=== PATIENT | female | born 1955 | race Caucasian/White ===

== ENCOUNTER 2017-03-18 09:53 | Outpatient (CLI) | payer MEDICAID ==
--- NOTE | 2017-03-19 14:26 | Mammography Report ---
DIGITAL SCREENING MAMMOGRAM: 03/18/2017 CLINICAL INDICATION: A 62-year-old nulliparous patient, for screening. COMPARISON: 02/2016, 01/2015, 12/2014, 03/2012, 02/2012, 03/2007. TECHNIQUE: Routine CC and MLO projections were obtained of the breasts. FINDINGS: Scattered fibroglandular tissue is present within the breasts. There are no dominant valentina s, suspicious microcalcifications, or secondary signs of malignancy. In comparison to the previous st udies, there are no significant changes. ASSESSMENT: NO MAMMOGRAPHIC EVIDENCE OF MALIGNANCY. NO SIGNIFICANT INTERVAL CHANGES. RECOMMENDATION: Screening mammography is recommended annually. BIRADS category 1 - negative. STANDARD QUALIFYING STATEMENTS 1. This examination was reviewed with the aid of Computed-Aided Detection (CAD). 2. A negative or benign imaging report should not delay biopsy if clinically suspicious findings are present. Consider surgical consultation if warranted. More than 5% of cancers are not identified by i maging. 3. Dense breasts may obscure an underlying neoplasm. JOB #: [id number] EXT JOB #:[id number]
== END 2017-03-18 09:54 | disposition home or self-care (01) ==
LOC: DI 09:53
PROVIDERS: ATTEND Nurse Practitioner Family
DX: Z12.31 Encounter for screening mammogram for malignant neoplasm of breast (principal)
CPT/HCPCS: 77067

== ENCOUNTER 2018-11-03 15:40 | Outpatient (CLI) | payer MEDICAID ==
--- NOTE | 2018-11-04 08:36 | Mammography Report ---
Reason: SCREENING MAMMO Procedure Date: 11/03/2018 Accession Number: [id number] / [id number] Procedure: [facility] - Screening Mammo w/Sbeastien CPT Code: FULL RESULT: EXAM: Screening Mammo w/Sebastien DATE: 11/03/2018 4:15 PM CLINICAL HISTORY: Screening encounter. History of nulliparity. TECHNIQUE: Bilateral CC and MLO views were obtained. COMPARISON: 03/18/2017 through 12/26/2014. FINDINGS: The breasts demonstrate scattered fibroglandular densities bilaterally. There are coarse typically benign calcifications. No suspicious masses, clustered microcalcifications, or regions of architectural distortion are identified. IMPRESSION: Benign findings RECOMMENDATION: Routine annual screening unless otherwise clinically indicated. BIRADS CATEGORY 2: Benign findings STANDARD QUALIFYING STATEMENTS: 1. This examination was not reviewed with the aid of Computer-Aided Detection (CAD). 2. A negative or benign imaging report should not preclude biopsy if clinically suspicious findings are present. 3. Dense breasts may obscure an underlying neoplasm. 4. This examination was reviewed with the aid of 3D breast imaging (tomosynthesis).
== END 2018-11-03 15:41 | disposition home or self-care (01) ==
LOC: DI 15:40
PROVIDERS: ATTEND Nurse Practitioner Family
DX: Z12.31 Encounter for screening mammogram for malignant neoplasm of breast (principal)
CPT/HCPCS: 77063; 77067

== ENCOUNTER 2020-08-22 08:42 | Outpatient (CLI) | payer MEDICAID, MEDICARE ==
[2020-08-22 14:57] LABS: BASOPHILS % (AUTO) 0.5 %; EOSINOPHILS # (AUTO) 0.1 10^3/uL (0.0-0.7); EOSINOPHILS % (AUTO) 2.8 %; HGB - HEMOGLOBIN 13.6 g/dL (12.0-16.0); LYMPHOCYTES # (AUTO) 1.1 10^3/uL (1.5-3.5); MEAN CORPUSCULAR HEMOGLOBIN 30.8 pg (27.0-31.0); MEAN CORPUSCULAR HGB CONC 32.6 g/dL (32.0-36.0); MEAN CORPUSCULAR VOLUME 94.3 fL (81.0-99.0); MEAN PLATELET VOLUME 10.8 fL (7.9-10.8); MONOCYTES # (AUTO) 0.3 10^3/uL (0.0-1.0); MONOCYTES % (AUTO) 7.6 %; NEUTROPHILS # (AUTO) 2.7 10^3/uL (1.5-6.6); NEUTROPHILS % (AUTO) 62.9 %; PLT - PLATELET COUNT 259 10^3/uL (130-450); RED BLOOD COUNT 4.42 10^6/uL (4.20-5.40); RED CELL DISTRIBUTION WIDTH 12.7 % (12.0-15.0); WHITE BLOOD COUNT 4.4 x10^3/uL (4.8-10.8)
[2020-08-22 15:40] LABS: ALBUMIN 4.2 g/dL (3.2-5.5); ALBUMIN/GLOBULIN RATIO 1.7 (1.0-2.2); ALKALINE PHOSPHATASE 41 IU/L (42-121); ALT ALANINE AMINOTRANSFERASE 15 IU/L (10-60); AST ASPARTATE AMINOTRANSFERASE 16 IU/L (10-42); BILIRUBIN,TOTAL 0.9 mg/dL (0.2-1.0); BUN - BLOOD UREA NITROGEN 17 mg/dL (6-20); CALCIUM 9.4 mg/dL (8.5-10.3); CARBON DIOXIDE - CO2 25 mmol/L (21-32); CHLORIDE 106 mmol/L (101-111); CHOLESTEROL 281 mg/dL; CREATININE 0.6 mg/dL (0.4-1.0); GLUCOSE 94 mg/dL (70-100); HDL CHOLESTEROL 71 mg/dL; LDL CHOLESTEROL,CALCULATED 190 mg/dL; LDL/HDL RATIO 2.7 (<4.4); SODIUM 138 mmol/L (135-145); TOTAL PROTEIN 6.7 g/dL (6.7-8.2); VLDL CHOLESTEROL 20 mg/dL
[2020-08-23 13:51] LABS: HEPATITIS C ANTIBODY NON-REACTIVE (NON-REACTIVE)
== END 2020-08-22 08:43 | disposition home or self-care (01) ==
LOC: LAB.S 08:42
PROVIDERS: ATTEND Registered Nurse
DX: R03.0 Elevated blood-pressure reading, without diagnosis of hypertension (principal); N95.9 Unspecified menopausal and perimenopausal disorder; Z11.59 Encounter for screening for other viral diseases
CPT/HCPCS: 36415; 80053; 80061; 83721; 84443; 85025; 86803

== ENCOUNTER 2020-10-07 11:31 | Outpatient (CLI) | payer MEDICARE ==
--- NOTE | 2020-10-07 11:01 | XRAY Report ---
PROCEDURE: Finger(s) RT INDICATIONS: ACQUIRED DEFORMITY OF R 4TH DIGIT TECHNIQUE: AP hand, 3 views of the right finger(s) acquired. COMPARISON: None FINDINGS: Bones: No fractures or dislocations. No suspicious bony lesions. Scattered subchondral sclerosis an d spurring. Chronic osseous fusion of the middle and proximal phalanges of the ring finger. Loose adriana dy versus chondrocalcinosis projects in the region of the distal radioulnar joint Additional chronic degenerative ossicle projects adjacent to the pisiform. Scattered marginal lucenci es at the interphalangeal joints are nonspecific. Subchondral lucency at the distal phalanx of the li ttle finger at the DIP joint Soft tissues: No suspicious soft tissue calcifications. 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 Diffuse degenerative changes as above. Nonspecific marginal lucencies at the interphalangeal joints, possibly degenerative cysts versus eros ions. Reviewed by: Gilbert Baugh MD on 10/07/2020 10:59 AM PST Approved by: Gilbert Baugh MD on 10/07/2020 10:59 AM PST Station ID: [id number]
== END 2020-10-07 23:59 | disposition home or self-care (01) ==
LOC: DI.N 11:31
PROVIDERS: ATTEND Orthopaedic Surgery
DX: M20.001 Unspecified deformity of right finger(s) (principal); M19.041 Primary osteoarthritis, right hand

== ENCOUNTER 2020-11-26 15:19 | Outpatient (CLI) | payer MEDICARE ==
--- NOTE | 2020-11-27 07:50 | Mammography Report ---
BILATERAL DIGITAL SCREENING MAMMOGRAM 3D/2D: 11/26/2020 CLINICAL: Routine screening. Comparison is made to exams dated: 11/03/2018 mammogram, 03/18/2017 mammogram, and 02/19/2016 mammogram - [facility]. The tissue of both breasts is predominantly fatty. There is a stable benign focal asymmetry in the right breast. No significant masses, calcifications, or other findings are seen in either breast. There has been no significant interval change. IMPRESSION: BENIGN There is no mammographic evidence of malignancy. A 1 year screening mammogram is recommended. This exam was interpreted at Station ID: [id number]. NOTE: For mammograms, a report in lay terms will be sent to the patient. Approximately 15% of breast malignancies will not be visualized mammographically. In the management of a palpable breast mass, a negative mammogram must not discourage biopsy of a clinically suspicious lesion. Electronically Signed By: Binh Darby acr/penrad:11/26/2020 16:20:50 ACR BI-RADS Category 2: Benign Finding(s) 3342F PARENCHYMAL PATTERN: (F) - The breast(s) demonstrate(s) diffuse fatty replacement. BI-RADS CATEGORY: (2) - 2 RECOMMENDATION: (ANNUAL) - Recommend routine annual screening mammography. [id number] 1 year screening LATERALITY: (B)
== END 2020-11-26 15:20 | disposition home or self-care (01) ==
LOC: DI.S 15:19
PROVIDERS: ATTEND Registered Nurse
DX: Z12.31 Encounter for screening mammogram for malignant neoplasm of breast (principal)

== ENCOUNTER 2020-12-05 08:42 | Day surgery (SDC) | payer MEDICARE ==
[2020-12-05] MEDS ORDERED: LACTATED RINGERS 1,000 ML IV ONE ×2 (08:46→10:03)
--- NOTE | 2020-12-05 09:34 | ANESTHESIA ---
Pre-Anesthesia VS, & Labs - Diagnosis screening - Procedure colonoscpy Vital Signs: Temp Pulse Resp BP Pulse Ox 36.4 C L 76 16 139/93 H 96 12/05/20 08:52 12/05/20 08:52 12/05/20 08:52 12/05/20 08:52 12/05/20 08:52 Height: 5 ft 3 in Weight (kg): 71 kg Body Mass Index: 27.7 BMI Classification: Overweight - NPO >8 hours - Is Patient ?: No Home Medications and Allergies Home Medications: Ambulatory Orders metroNIDAZOLE 0.75% GEL [Flagyl Gel] TOP 12/04/20 Estrogen,Con/M-Progest Acet [Premphase 0.625-5 mg Tablet] 1 each PO DAILY 10/26/14 metroNIDAZOLE 0.75% GEL [Flagyl Gel] TOP 12/04/20 Allergies/Adverse Reactions: Allergies Allergy/AdvReac Type Severity Reaction Status Date / Time No Known Drug Allergies Allergy Verified 12/04/20 11:56 Anes History & Medical History - Medical History Cardiovascular: reports: Arrhythmia Pulmonary: reports: None Gastrointestinal: reports: None Urinary: reports: None Musculoskeletal: reports: Osteoarthritis Endocrine/Autoimmune: reports: None Skin: reports: Rosacea Smoking Status: Never smoker - Surgical History General: reports: Appendectomy, Colonoscopy Gynecologic: reports: Hysterectomy Orthopedic: reports: Carpal Tunnel surgery Exam Dental: WNL Mouth Openin Fingerbreadth Mallampati classification: II Thyromental Distance: 4-6 cm Respiratory: Lungs clear Plan Anesthesia Type: Total IV Consent for Procedure(s) Verified and Reviewed: Yes Code Status: Attempt Resuscitation ASA classification: 2-Mild systemic disease Is this case an emergency?: No
[2020-12-05] MEDS ORDERED: LIDOCAINE-MPF 2% 5 ML VIAL ONE (09:43)
[2020-12-05] MEDS ORDERED: PROPOFOL 200 MG/20 ML VIAL IVP ONE (09:43)
[2020-12-05] MEDS ORDERED: ATROPINE 0.4 MG/ML VIAL IVP ONE (10:01)
[2020-12-05 10:20] VITALS: BP 121/78
--- NOTE | 2020-12-05 10:51 | ANESTHESIA POST OP EVALUATION ---
Anesthesia Post Eval - Post Anesthesia Eval Vitals: Last Vital Signs Temp 36.7 C 12/05/20 10:03 Pulse 77 12/05/20 10:19 Resp 18 12/05/20 10:19 BP 121/78 12/05/20 10:19 Pulse Ox 100 12/05/20 10:19 CV Function Including HR & BP: positive: Stable Pain Control: positive: Satisfactory Nausea & Vomiting: positive: Negative Mental Status: positive: Baseline Respiratory Status: Airway Patent Hydration Status: Satisfactory Anesthesia Complications: positive: None
== END 2020-12-05 08:43 | disposition home or self-care (01) ==
LOC: SDS 08:42
PROVIDERS: ATTEND Surgery
PROC: 0DBN8ZZ Excision of Sigmoid Colon, Via Natural or Artificial Opening Endoscopic (ICD-10-PCS; principal; 2020-12-05 09:45)
DX: Z12.11 Encounter for screening for malignant neoplasm of colon (principal); K63.5 Polyp of colon; K64.8 Other hemorrhoids; Q43.8 Other specified congenital malformations of intestine; E66.3 Overweight; Z68.27 Body mass index [BMI] 27.0-27.9, adult; Z87.891 Personal history of nicotine dependence
CPT/HCPCS: 45380; J7120

== ENCOUNTER 2021-02-14 11:50 | Outpatient (CLI) | payer MEDICARE ==
--- NOTE | 2021-02-14 13:40 | XRAY Report ---
PROCEDURE: Shoulder 3 View LT INDICATIONS: SHOULDER PX LT TECHNIQUE: 3 views of the shoulder were acquired. COMPARISON: None. FINDINGS: No acute fracture. Severe glenohumeral osteoarthritis with [id number] appearance, and bulky osteoph yte formation. Mild AC joint degeneration. IMPRESSION: Severe right shoulder osteoarthritis Reviewed by: Gilbert Baugh MD on 02/14/2021 1:39 PM PDT Approved by: Gilbert Baugh MD on 02/14/2021 1:39 PM PDT Station ID: [id number]
== END 2021-02-14 11:51 | disposition home or self-care (01) ==
LOC: DI.S 11:50
PROVIDERS: ATTEND Registered Nurse
DX: M25.512 Pain in left shoulder (principal); M19.012 Primary osteoarthritis, left shoulder

== ENCOUNTER 2021-03-10 09:44 | Outpatient (CLI) | payer MEDICARE ==
[2021-03-10] MEDS ORDERED: BUFFERED LIDOCAINE 10 ML SYRINGE ONE (09:49)
[2021-03-10] MEDS ORDERED: TRIAMCINOLONE 40 MG/ML VIAL ONE (09:50)
[2021-03-10] MEDS ORDERED: IOTHALAMATE MEGLUMINE 50 ML VIAL ONE (09:50)
[2021-03-10] MEDS ORDERED: ROPIVACAINE 0.5% PF 20 ML AMPULE ONE (09:56)
[2021-03-10] MEDS ORDERED: IOTHALAMATE MEGLUMINE 50 ML VIAL IVP ONE (11:28)
[2021-03-10] MEDS ORDERED: ROPIVACAINE 0.5% PF 20 ML AMPULE EP ONE (11:29)
[2021-03-10] MEDS ORDERED: BUFFERED LIDOCAINE 10 ML SYRINGE IU ONE (11:29)
[2021-03-10] MEDS ORDERED: TRIAMCINOLONE 40 MG/ML VIAL IM ONE (11:35)
--- NOTE | 2021-03-10 16:42 | XRAY Report ---
PROCEDURE: Inj/Aspiration Major Joint INDICATIONS: LEFT GLENOHUMERAL JOINT OSTEOARTHRITIS CONTRAST: Conray 2 mL. FLUORO TIME: FLUORO TIME: 0.1min and NUMBER IMAGES: 2 TECHNIQUE: The indications, alternatives, benefits, risks, and complications of the procedure were explained to the patient. Written informed consent was obtained and placed in the chart. The patient was placed in an appropriate position on the fluoroscopy table, and a site was chosen for percutaneous access un jarrod fluoroscopic guidance. Local anesthetic was administered using a 1% lidocaine solution. A hypod ermic or spinal needle was then used to access the symptomatic joint. Intra-articular location of th e needle tip was confirmed by injecting a small amount of contrast, followed by steroid administratio n. The needle was then withdrawn, and a bandage applied to the puncture site. FINDINGS: Joint injected: Left glenohumeral Medications injected: 1 mL of 40 mg/mL and 4 mL 0.5% Ropivacaine mixture. Complications: None. IMPRESSION: Successful fluoroscopically guided administration of steroid and anaesthetic solution into the joint joint. Reviewed by: Dell Mccrary MD on 03/10/2021 4:40 PM PDT Approved by: Dell Mccrary MD on 03/10/2021 4:40 PM PDT Station ID: [id number]
== END 2021-03-10 09:45 | disposition home or self-care (01) ==
LOC: DI 09:44
PROVIDERS: ATTEND Orthopaedic Surgery
DX: M19.012 Primary osteoarthritis, left shoulder (principal)
CPT/HCPCS: 20610; 77002; Q9961

== ENCOUNTER 2021-06-04 15:13 | Outpatient (CLI) | payer MEDICARE ==
--- NOTE | 2021-06-04 17:30 | CT Report ---
PROCEDURE: UPPER EXTREMITY WO - LT INDICATIONS: LEFT GLENOHUMERAL JOINT OSTEOARTHRITIS TECHNIQUE: Noncontrast 1 mm axial sections acquired of the left shoulder, with oblique coronal and oblique sagit peter reformats. COMPARISON: Left shoulder radiographs 02/14/2021. FINDINGS: Image quality: Excellent. Bones: No acute osseous fracture or dislocation. Severe degenerative changes are seen at the glenohu meral joint with full-thickness joint space narrowing, subchondral sclerosis, subchondral cystic moncada ges, marginal osteophyte formation, and remodeling of the articular surfaces. Findings result in appr oximately 14 degrees of glenoid retroversion relative to the midplane of the scapula at the mid gleno id level. There is significant thinning of the posterior glenoid bone stock. Mild degenerative change s are seen in the acromioclavicular joint. The Included ribs are intact. Soft tissues: The rotator cuff musculature is normal in bulk. The articular cartilages, ligaments, t endons, and labrum are not well evaluated with CT. There is a large glenohumeral effusion with multip le calcified intra-articular loose bodies, the largest of which measures up to 6 mm in the superior s ubscapularis recess. IMPRESSION: 1. Severe glenohumeral osteoarthrosis with loss of posterior glenoid bone stock and remodeling of th e articular surfaces resulting in 14 degrees of glenoid retroversion relative to the midplane of the scapula at the mid glenoid level. 2. Large glenohumeral effusion with multiple small calcified intra-articular loose bodies. 3. Mild acromioclavicular joint osteoarthrosis. Reviewed by: Serjio Nicole MD on 06/04/2021 5:28 PM PDT Approved by: Serjio Nicole MD on 06/04/2021 5:28 PM PDT Station ID: [id number]
== END 2021-06-04 15:14 | disposition home or self-care (01) ==
LOC: DI 15:13
PROVIDERS: ATTEND Orthopaedic Surgery
DX: M19.012 Primary osteoarthritis, left shoulder (principal); M25.412 Effusion, left shoulder

== ENCOUNTER 2021-08-01 08:45 | Outpatient (CLI) | payer MEDICARE ==
[2021-08-01 15:15] LABS: BASOPHILS % (AUTO) 0.4 %; EOSINOPHILS # (AUTO) 0.2 10^3/uL (0.0-0.7); HCT - HEMATOCRIT 42.2 % (37.0-47.0); HGB - HEMOGLOBIN 13.9 g/dL (12.0-16.0); LYMPHOCYTES # (AUTO) 1.1 10^3/uL (1.5-3.5); LYMPHOCYTES % (AUTO) 21.2 %; MEAN CORPUSCULAR HEMOGLOBIN 31.8 pg (27.0-31.0); MEAN CORPUSCULAR HGB CONC 32.9 g/dL (32.0-36.0); MEAN CORPUSCULAR VOLUME 96.6 fL (81.0-99.0); MEAN PLATELET VOLUME 10.7 fL (7.9-10.8); MONOCYTES # (AUTO) 0.4 10^3/uL (0.0-1.0); MONOCYTES % (AUTO) 8.5 %; NEUTROPHILS # (AUTO) 3.3 10^3/uL (1.5-6.6); NEUTROPHILS % (AUTO) 66.5 %; PLT - PLATELET COUNT 242 10^3/uL (130-450); RED BLOOD COUNT 4.37 10^6/uL (4.20-5.40); RED CELL DISTRIBUTION WIDTH 12.8 % (12.0-15.0)
[2021-08-01 15:50] LABS: ALBUMIN 4.2 g/dL (3.2-5.5); ALBUMIN/GLOBULIN RATIO 1.7 (1.0-2.2); ALKALINE PHOSPHATASE 45 IU/L (42-121); ALT ALANINE AMINOTRANSFERASE 16 IU/L (10-60); AST ASPARTATE AMINOTRANSFERASE 14 IU/L (10-42); BILIRUBIN,TOTAL 0.7 mg/dL (0.2-1.0); BUN - BLOOD UREA NITROGEN 16 mg/dL (6-20); CALCIUM 9.2 mg/dL (8.5-10.3); CARBON DIOXIDE - CO2 25 mmol/L (21-32); CHLORIDE 105 mmol/L (101-111); CHOL/HDL RATIO 3.6 (<4.4); CHOLESTEROL 280 mg/dL; CREATININE 0.5 mg/dL (0.4-1.0); GFR - MDRD 123 (>89); GLUCOSE 97 mg/dL (70-100); HDL CHOLESTEROL 77 mg/dL; LDL CHOLESTEROL,CALCULATED 180 mg/dL; LDL/HDL RATIO 2.3 (<4.4); POTASSIUM 4.1 mmol/L (3.5-5.0); SODIUM 137 mmol/L (135-145); TOTAL PROTEIN 6.7 g/dL (6.7-8.2); TRIGLYCERIDES 117 mg/dL; VLDL CHOLESTEROL 23 mg/dL
[2021-08-01 15:57] LABS: THYROID STIMULATING HORMONE 1.43 uIU/mL (0.34-5.60)
[2021-08-01 20:24] LABS: ESTIMATED AVERAGE GLUCOSE 94 mg/dL (70-100); HEMOGLOBIN A1c% 4.9 % (4.27-6.07)
== END 2021-08-01 08:46 | disposition home or self-care (01) ==
LOC: LAB.S 08:45
PROVIDERS: ATTEND Registered Nurse
DX: Z01.812 Encounter for preprocedural laboratory examination (principal); R03.0 Elevated blood-pressure reading, without diagnosis of hypertension; N95.9 Unspecified menopausal and perimenopausal disorder
CPT/HCPCS: 36415; 80053; 80061; 83036; 83721; 84443; 85025

== ENCOUNTER 2021-08-20 07:24 | Day surgery (SDC) | payer MEDICARE ==
[~2021-08-20 07:24] MED LIST: ACETAMINOPHEN 500 MG TABLET PO ONE; CEFAZOLIN SODIUM IN 0.9 % NACL 2 GM/100 ML BAG IV ONE; CELECOXIB 100 MG CAPSULE PO ONE; DEXAMETHASONE 10 MG/ML VIAL ONE; THROMBIN (BOVINE) 5,000 UNIT VIAL TOP ONE; VANCOMYCIN 1 GM VIAL ONE
[2021-08-20] MEDS ORDERED: oxyCODONE 5 MG TABLET PO PRN (07:33)
[2021-08-20] MEDS ORDERED: KETOROLAC 15 MG/ML VIAL IVP STA (07:33)
[2021-08-20] MEDS ORDERED: LACTATED RINGERS 1,000 ML IV ONE ×2 (07:34→12:57)
[2021-08-20] MEDS ORDERED: ROPIVACAINE 0.5% PF 20 ML AMPULE ONE ×2 (07:44→07:45)
[2021-08-20] MEDS ORDERED: ROCURONIUM 50 MG/5 ML VIAL ONE ×2 (07:44→10:21)
[2021-08-20] MEDS ORDERED: ONDANSETRON 4 MG/2 ML VIAL ONE (07:44)
[2021-08-20] MEDS ORDERED: PROPOFOL 200 MG/20 ML VIAL IVP ONE (07:44)
[2021-08-20] MEDS ORDERED: LIDOCAINE-MPF 2% 5 ML VIAL ONE (07:44)
[2021-08-20] MEDS ORDERED: DEXAMETHASONE 4 MG/ML VIAL ONE ×2 (07:44→07:49)
[2021-08-20] MEDS ORDERED: MIDAZOLAM 2 MG/2 ML VIAL ONE (07:46)
[2021-08-20] MEDS ORDERED: fentaNYL 100 MCG/2 ML VIAL ONE (07:46)
[2021-08-20] MEDS ORDERED: ethyl alcohoL 62% SWAB AMPULE NAS ONE (07:50)
--- NOTE | 2021-08-20 08:13 | ANESTHESIA ---
Pre-Anesthesia VS, & Labs - Diagnosis left shoulder osteoarthritis - Procedure left total shoulder arthroplasty Vital Signs: Temp Pulse Resp BP Pulse Ox 36.2 C L 67 16 133/88 H 96 08/20/21 07:35 08/20/21 07:35 08/20/21 07:35 08/20/21 07:35 08/20/21 07:35 Height: 5 ft 2 in Weight (kg): 73 kg Body Mass Index: 29.4 BMI Classification: Overweight - NPO >8 hours - Is Patient ?: No - Lab Results Current Lab Results: Laboratory Tests 08/20/21 07:56: POC Whole Bld Glucose 101 H Home Medications and Allergies Active Medications Oxycodone HCl (Oxycodone 5 Mg Tablet) 5 mg PO Q4HR PRN PRN Reason: PAIN Estrogen,Con/M-Progest Acet [Premphase 0.625-5 mg Tablet] 1 each PO DAILY 10/26/14 metroNIDAZOLE 0.75% GEL [Flagyl Gel] 1 mg TOP DAILY 12/04/20 Allergies/Adverse Reactions: Allergies Allergy/AdvReac Type Severity Reaction Status Date / Time No Known Drug Allergies Allergy Verified 08/20/21 07:34 Anes History & Medical History - Anesthetic History Anesthesia Complications: reports: No previous complications - Medical History Cardiovascular: reports: Other Pulmonary: reports: None Gastrointestinal: reports: None Urinary: reports: Frequency Musculoskeletal: reports: None, Osteoarthritis Endocrine/Autoimmune: reports: None Skin: reports: Rosacea Smoking Status: Never smoker - Surgical History General: reports: Appendectomy, Colonoscopy Gynecologic: reports: Hysterectomy, Oophrectomy Orthopedic: reports: Carpal Tunnel surgery Dermatologic: reports: Skin cancer surgery Exam General: Alert, Oriented x3 Dental: Poor dentition Mouth Opening: Greater than 4 Fingerbreadths Neck Mobility: Normal Mallampati classification: II Thyromental Distance: greater than 6 cm Respiratory: Lungs clear Cardiovascular: Regular rate, Normal S1, Normal S2 Plan Anesthesia Type: General, Interscalene Block Consent for Procedure(s) Verified and Reviewed: Yes Code Status: Attempt Resuscitation ASA classification: 2-Mild systemic disease Is this case an emergency?: Yes
[2021-08-20] MEDS ORDERED: NALOXONE 0.4 MG/ML VIAL IVP PRN (08:17)
[2021-08-20] MEDS ORDERED: METOCLOPRAMIDE 10 MG/2 ML VIAL IVP PRN (08:17)
[2021-08-20] MEDS ORDERED: ATROPINE ABBOJECT 1 MG/10 ML SYRINGE IVP PRN (08:17)
[2021-08-20] MEDS ORDERED: ePHEDrine 50 MG/ML VIAL IVP PRN (08:17)
[2021-08-20] MEDS ORDERED: HYDROmorphone 0.5 MG/0.5 ML SYRINGE IVP PRN (08:17)
[2021-08-20] MEDS ORDERED: fentaNYL 100 MCG/2 ML VIAL IVP PRN (08:17)
[2021-08-20] MEDS ORDERED: ONDANSETRON 4 MG/2 ML VIAL IVP PRN (08:17)
[2021-08-20] MEDS ORDERED: MORPHINE 2 MG/ML CARPUJECT IVP PRN (08:17)
[2021-08-20] MEDS ORDERED: PHENYLEPHRINE 10 MG/ML VIAL ONE (08:57)
[2021-08-20] MEDS ORDERED: TRANEXAMIC ACID 1,000 MG/10 ML VIAL ONE ×2 (08:57→12:34)
[2021-08-20] MEDS ORDERED: LACTATED RINGERS 1,000 ML IV SCH (09:00)
[2021-08-20] MEDS ORDERED: HYDROGEN PEROXIDE 3% 473 ML BOTTLE TOP ONE (09:15)
[2021-08-20] MEDS ORDERED: ePHEDrine 50 MG/ML VIAL IVP ONE (09:37)
[2021-08-20] MEDS ORDERED: VANCOMYCIN 1 GM VIAL MC ONE (09:40)
[2021-08-20] MEDS ORDERED: THROMBIN (BOVINE) 5,000 UNIT VIAL TOP ONE (09:40)
[2021-08-20] MEDS ORDERED: SUGAMMADEX 200 MG/2 ML VIAL IVP ONE (12:24)
[2021-08-20] MEDS ORDERED: ceFAZolin 1 GM VIAL ONE (12:30)
--- NOTE | 2021-08-20 12:34 | OPERATIVE REPORT ---
Operative Report - General Procedure Date: 08/20/21 Planned Procedure: Left total shoulder arthroplasty Pre-Op Diagnosis: Osteoarthritis glenohumeral joint left shoulder Procedure Performed: Left total shoulder arthroplasty using the [employer] total shoulder: Extra small fin lock glenoid component, pegged with cement; 40 x 15 mm cobalt chrome eccentric humeral head, 11 mm humeral stem with 10 small primary proximal body, noncemented Post Op Diagnosis: Same as preop diagnosis - Procedure Note Primary Surgeon: Kobi Neville MD Secondary Surgeon: Trevin TAYLOR Anesthesia Provider: Raiza Mckenzie CRNA Anesthesia Technique: General ET tube, Regional block Estimated Blood Loss (mL): 150 Indications: This is a 66-year-old with chronic and progressive pain with left shoulder making it hard to do lifting, activities of daily living and activities she enjoys. She is tried nonoperative treatment without success as has been documented in her history and physical. Her x-rays and CT scan were obtained prior to surgery and showed complete loss of glenohumeral joint space, posterior glenoid wear, osteophytes and sclerosis. Her strength was relatively good, rotator cuff strength seemed to be good preoperatively. She did have decreased motion but good external rotation and relatively good overall motion despite her advanced osteoarthritis Findings: The rotator cuff was completely intact. The glenoid and humeral head were very abnormal with complete loss of articular cartilage, osteophytes about the glenoid, osteophytes about the humeral neck especially inferiorly. Complications: None - Other Other Information/Narrative: The patient was brought to the operating room. She had been given a shoulder block, then general endotracheal anesthesia. She was positioned supine on the operating room table in a beachchair positioner. The [employer] arthrex arm holderWas applied to the operating room table. The patient was placed in a s emisitting position with the head of bed elevated to about 30 degrees. Her head was secured with a padded facemask in neutral neck alignment. The left shoulder and upper extremity were prepped and draped in a sterile manner in the usual fashion. A timeout procedure was performed by the entire operating room team and all were in agreement. A triple prep had been performed prior to draping consisting of Betadine, 3% hydrogen peroxide and chlorhexidine. The axilla was occluded from the operatingField. A standard deltopectoral incision was made. Gelpi's were inserted. The cephalic vein was identified and retracted laterally with the deltoid as the deltopectoral interval was developed by blunt incision.The clavipectoral fascia was incised. Care was taken to protect the muscular cutaneous nerve with retraction of the conjoined muscles. The biceps tendon was identified and exposed through its sheath over the proximal humerus. The upper 25% of the pectoralis major was released. The arm was externally rotated. The rotator interval was opened and a subperiosteal peel of the subscapularis and capsule was performed. The inferior capsule was released along the neck with care taken to protect the axillary nerve. The inferior humeral osteophytes were carefully removed with rongeur. The head was gently dislocated anteriorly. Retractors were placed superiorly to sublux the head more anteriorly. A deltoid muscle retractor had been inserted. A blunt Hohmann was inserted medially.Before the subscapularis tendon had been released, Ethibond #1 suture was placed as tag sutures. The T-handle starter awl was then inserted posterior lateral humeral head, posterior to biceps. The intramedullary humeral neck cutting guide was inserted and adjusted to protect the rotator cuff. The cutting guide was secured with half pins And aligned with 30 degrees of retroversion. An oscillating saw was used to do the osteotomy of the humeral head. Head sizing was performed and measured 38 mm. The surface of the osteotomy was covered with a metal protective cap. Next the glenoid was exposed placing a posterior humeral tractor to sublux the head posteriorly and inferiorly, blunt anterior glenoid retractor and a spike superior retractor. The glenoid had osteophytes which were removed. Anterior capsular release was performed. The biceps and labrum had been circumferentially removed. The center of the glenoid was identified. The extra small glenoid seem to give the best coverage. The cannulated glenoid guide was then utilized to put a guidepin, 2.0 mm to the center of the glenoid with 5 degrees of anterior angulation to compensate for the posterior wear. The extra small glenoid reamer was used to ream the glenoid. The peg drill guide was then inserted through a central drill hole. The peripheral peg holes were then drilled and peg seated. After the peripheral holes had been drilled, a peg glenoid punch was utilized and fit well. The holes were irrigated,. Gelfoam and thrombin were placed in the peg holes. A small amount of cement injected into the peripheral peg holes and gently impacted. The extra small all polyethylene glenoid implant was then impacted. This seated well and was stable to rocking motion. Next the humerus was exposed again. The humeral canal was prepared with central reamer to a #11. This gave a snug fit and was stable. She had relatively good bone both the glenoid and humerus, meaning that there was little osteoporosis encountered. Final broaching was performed 30 degrees of retroversion. Trial humeral heads were applied and a 40 seemed to give the best fit with an eccentric head. The shoulder was reduced and was stable with full internal rotation to chest and opposite shoulder, forward flexion to 140 degrees and at least 30 degrees of external rotation. There was a positive shuck test with spring back of the humeral head; shoulder seems stable. The eccentric head position was marked at the osteotomy. A fiber tack suture was inserted into the lesser tuberosity with 4 suture strands. The implant was assembled and impacted with sutures through the holes of the proximal prosthesis. This was fully seated in 30 degrees of retroversion, leaving it slightly proud. The humeral head was inserted, impacted and the unit was fully seated to the osteotomy site. The shoulder joint was stable to motion and to shuck test having a least 50% displacement posteriorly with a good spring back. The subscapularis was repaired with the suture anchor sutures, body sutures consisting of Ethibond and the previously t agged sutures that were Ethibond as well. A secure repair of the subscapularis and rotator interval was achieved. The joint was thoroughly irrigated with sterile dilute Betadine solution, a gram of vancomycin powder inserted, deltopectoral interval closed with 2 oh strata fix, subcutaneous tissue closed with 2 oh strata fix and the skin was closed with a 3-0 Monocryl subcuticular suture, Dermabond and then a silver impregnated dressing once the glue had dried to the skin incision.A sling was applied to the left upper extremity. She tolerated the procedure well. A physician patient care nursing assistant was utilized, medically necessary to help with prepping, draping, exposure and protection of vital structures, closure and dressing.
--- NOTE | 2021-08-20 14:37 | ANESTHESIA POST OP EVALUATION ---
Anesthesia Post Eval - Post Anesthesia Eval Vitals: Last Vital Signs Temp 36.6 C 08/20/21 13:50 Pulse 86 08/20/21 13:50 Resp 18 08/20/21 13:50 BP 110/76 08/20/21 13:50 Pulse Ox 93 08/20/21 13:50 CV Function Including HR & BP: Stable Pain Control: Satisfactory Nausea & Vomiting: Negative Mental Status: Baseline Respiratory Status: Airway Patent Hydration Status: Satisfactory Anesthesia Complications: None
[2021-08-20 14:44] VITALS: BP 127/92
--- NOTE | 2021-08-20 15:21 | XRAY Report ---
PROCEDURE: Shoulder 1 View LT INDICATIONS: postop TECHNIQUE: 1 views of the shoulder were acquired. COMPARISON: 02/14/2021. FINDINGS: Bones: Patient is status post left shoulder arthroplasty with anatomic left shoulder alignment. No fr acture or dislocation. No suspicious bony lesions. Visualized ribs appear intact. Soft tissues: Expected post surgical changes are seen in left shoulder soft tissue. No suspicious so ft tissue calcifications. IMPRESSION: Postop changes from left shoulder arthroplasty with anatomic shoulder alignment. Reviewed by: Yannick Marques MD on 08/20/2021 3:20 PM PST Approved by: Yannick Marques MD on 08/20/2021 3:20 PM PST Station ID: [id number]
== END 2021-08-20 07:25 | disposition home or self-care (01) ==
LOC: SDS 07:24
PROVIDERS: ATTEND Orthopaedic Surgery
DX: M19.012 Primary osteoarthritis, left shoulder (principal); Z87.891 Personal history of nicotine dependence
CPT/HCPCS: 23472; 73020; A9270; C1713; J0690; J3370; J7120

== ENCOUNTER 2021-10-13 11:46 | Outpatient (CLI) | payer MEDICARE ==
--- NOTE | 2021-10-13 13:34 | XRAY Report ---
PROCEDURE: Shoulder 3 View LT INDICATIONS: POST LEFT TOTAL SHOULDER ARTHROPLASTY TECHNIQUE: 4 views of the shoulder were acquired. COMPARISON: 08/20/2021 FINDINGS: Bones: Left shoulder arthroplasty components present. There is superior subluxation of the humeral h ead component respect to the [place] glenoid fossa. There is remodeling of the undersurface of the acr omion. No unexpected fractures. No suspicious bony lesions. Soft tissues: No suspicious soft tissue calcifications. IMPRESSION: 1. Superior subluxation of the humeral head out of the [place] glenoid fossa. Please correlate with lo cation of the radiopaque acetabular cup. 2. Stable position of the humeral prosthesis. Reviewed by: Elli Anderson MD on 10/13/2021 1:33 PM PST Approved by: Elli Anderson MD on 10/13/2021 1:33 PM PST Station ID: [id number]
== END 2021-10-13 11:47 | disposition home or self-care (01) ==
LOC: DI.WOS 11:46
PROVIDERS: ATTEND Orthopaedic Surgery
DX: T84.028A Dislocation of other internal joint prosthesis, initial encounter (principal)

== ENCOUNTER 2022-02-12 08:00 | Outpatient (CLI) | payer MEDICARE ==
--- NOTE | 2022-02-12 16:26 | XRAY Report ---
PROCEDURE: Shoulder 2 View LT INDICATIONS: SHOULDER FX TECHNIQUE: 4 views of the shoulder were acquired. COMPARISON: 08/20/2021, 10/13/2021 FINDINGS: Bones: Patient is status post left shoulder arthroplasty. Shoulder alignment is anatomic. No acute f racture or dislocation. No gross hardware loosening or failure. No suspicious bony lesions. Visualiz ed ribs appear intact. Soft tissues: No suspicious soft tissue calcifications. IMPRESSION: Prior left shoulder arthroplasty. No acute fracture or dislocation. No gross hardware co mplication. Shoulder alignment is stable. Reviewed by: Yannick Marques MD on 02/12/2022 4:24 PM PDT Approved by: Yannick Marques MD on 02/12/2022 4:24 PM PDT Station ID: [id number]
== END 2022-02-12 23:59 | disposition home or self-care (01) ==
LOC: DI.WOS 08:00
PROVIDERS: ATTEND Orthopaedic Surgery
DX: Z09 Encounter for follow-up examination after completed treatment for conditions other than malignant neoplasm (principal); Z96.612 Presence of left artificial shoulder joint

== ENCOUNTER 2022-08-20 12:57 | Outpatient (CLI) | payer MEDICARE ==
--- NOTE | 2022-08-20 20:20 | XRAY Report ---
PROCEDURE: Shoulder 3 View LT INDICATIONS: LEFT TOTAL SHOULDER TECHNIQUE: 3 views of the shoulder were acquired. COMPARISON: 02/12/2022, 10/13/2021, 08/20/2021. FINDINGS: Postsurgical changes of left total shoulder arthroplasty. Shoulder alignment is unchanged from prior study, again with superior subluxation of the humeral component relative to the glenoid. This has bee n present on 02/12/2022 exam and 10/13/2021 exam. IMPRESSION: Left total shoulder arthroplasty with unchanged superior subluxation of the humeral prost hetic relative to the glenoid. Reviewed by: Dell Mccrary MD on 08/20/2022 8:19 PM PST Approved by: Dell Mccrary MD on 08/20/2022 8:19 PM PST Station ID: [id number]
== END 2022-08-20 12:58 | disposition home or self-care (01) ==
LOC: DI.WOS 12:57
PROVIDERS: ATTEND Orthopaedic Surgery
DX: T84.028D Dislocation of other internal joint prosthesis, subsequent encounter (principal); Z96.612 Presence of left artificial shoulder joint

== ENCOUNTER 2023-05-12 08:00 | Outpatient (CLI) | payer MEDICARE ==
[2023-05-12 14:40] LABS: BASOPHILS % (AUTO) 0.8 %; EOSINOPHILS # (AUTO) 0.2 10^3/uL (0.0-0.7); EOSINOPHILS % (AUTO) 3.1 %; HCT - HEMATOCRIT 40.5 % (37.0-47.0); HGB - HEMOGLOBIN 13.2 g/dL (12.0-16.0); LYMPHOCYTES # (AUTO) 1.4 10^3/uL (1.5-3.5); LYMPHOCYTES % (AUTO) 26.2 %; MEAN CORPUSCULAR HEMOGLOBIN 31.4 pg (27.0-31.0); MEAN CORPUSCULAR HGB CONC 32.6 g/dL (32.0-36.0); MEAN CORPUSCULAR VOLUME 96.2 fL (81.0-99.0); MEAN PLATELET VOLUME 10.4 fL (7.9-10.8); MONOCYTES # (AUTO) 0.4 10^3/uL (0.0-1.0); MONOCYTES % (AUTO) 7.9 %; NEUTROPHILS # (AUTO) 3.2 10^3/uL (1.5-6.6); NEUTROPHILS % (AUTO) 61.8 %; PLT - PLATELET COUNT 237 10^3/uL (130-450); RED BLOOD COUNT 4.21 10^6/uL (4.20-5.40); RED CELL DISTRIBUTION WIDTH 13.5 % (12.0-15.0); WHITE BLOOD COUNT 5.2 x10^3/uL (4.8-10.8)
[2023-05-12 15:51] LABS: ALBUMIN 4.1 g/dL (3.2-5.5); ALBUMIN/GLOBULIN RATIO 1.8 (1.0-2.2); ALKALINE PHOSPHATASE 46 IU/L (42-121); ALT ALANINE AMINOTRANSFERASE 9 IU/L (10-60); AST ASPARTATE AMINOTRANSFERASE 11 IU/L (10-42); BILIRUBIN,TOTAL 0.6 mg/dL (0.2-1.0); BUN - BLOOD UREA NITROGEN 21 mg/dL (6-20); CALCIUM 9.6 mg/dL (8.5-10.3); CARBON DIOXIDE - CO2 29 mmol/L (21-32); CHLORIDE 107 mmol/L (101-111); CHOL/HDL RATIO 3.4 (<4.4); CHOLESTEROL 243 mg/dL; CREATININE 0.6 mg/dL (0.6-1.3); GFR - MDRD 99 (>89); GLUCOSE 86 mg/dL (74-104); HDL CHOLESTEROL 71 mg/dL; LDL CHOLESTEROL,CALCULATED 149 mg/dL; LDL/HDL RATIO 2.1 (<4.4); POTASSIUM 4.5 mmol/L (3.5-4.5); SODIUM 137 mmol/L (135-145); TOTAL PROTEIN 6.4 g/dL (6.4-8.9); TRIGLYCERIDES 115 mg/dL (48-352); VLDL CHOLESTEROL 23 mg/dL
[2023-05-12 16:06] LABS: THYROID STIMULATING HORMONE 1.46 uIU/mL (0.34-5.60)
== END 2023-05-12 23:59 | disposition home or self-care (01) ==
LOC: LAB.S 08:00
PROVIDERS: ATTEND Registered Nurse
DX: Z13.228 Encounter for screening for other metabolic disorders (principal); Z13.220 Encounter for screening for lipoid disorders; Z13.29 Encounter for screening for other suspected endocrine disorder; Z13.0 Encounter for screening for diseases of the blood and blood-forming organs and certain disorders involving the immune mechanism
CPT/HCPCS: 36415; 80053; 80061; 83721; 84443; 85025

== ENCOUNTER 2023-06-01 10:43 | Outpatient (CLI) | payer MEDICARE ==
--- NOTE | 2023-06-01 13:10 | DEXA Report ---
PROCEDURE: Dexa Spine and/or Hip INDICATIONS: POST MENOPAUSAL TECHNIQUE: Dual energy x-ray absorptiometry (DXA) was performed on a PlanG System. Regions measur ed are the AP Spine, femoral neck, and if needed forearm. COMPARISON: None. FINDINGS: Lumbar Spine: Bone Mineral Density 1.633 g/cm/cm,T score 3.8. Left Femoral Neck: Bone Mineral Density 1.031 g/cm/cm, T score -0 point. Left Hip: Bone Mineral Density 1.11 g/cm/cm,T score 0.8. (T score greater or equal to -1.0: NORMAL) (T score from -1.1 to -2.4: OSTEOPENIA) (T score less than or equal to -2.5 to: OSTEOPOROSIS) Impression: By WHO criteria, this patient has normal bone density. Patients with diagnosis of osteoporosis or osteopenia should have regular bone mineral density assess ment. For those eligible for Medicare, routine testing is allowed once every 2 years. Testing frequ ency can be increased for patients who have rapidly progressing disease or for those who are receivin g medical therapy to restore bone mass. Reviewed by: Milady Mcintyre MD on 06/01/2023 1:08 PM PDT Approved by: Milady Mcintyre MD on 06/01/2023 1:08 PM PDT Station ID: [id number]
== END 2023-06-01 10:44 | disposition home or self-care (01) ==
LOC: DI 10:43
PROVIDERS: ATTEND Registered Nurse
DX: Z78.0 Asymptomatic menopausal state (principal)

== ENCOUNTER 2023-06-01 10:43 | Outpatient (CLI) | payer MEDICARE ==
--- NOTE | 2023-06-02 16:27 | Mammography Report ---
BILATERAL DIGITAL SCREENING MAMMOGRAM 3D/2D: 06/01/2023 CLINICAL: Routine screening. Comparison is made to exams dated: 11/26/2020 mammogram, 11/03/2018 mammogram, 03/18/2017 mammogram, mammogram, 01/17/2015 mammogram, and 12/26/2014 mammogram - [facility]. There are scattered areas of fibroglandular density in both breasts (category b / 25%-50% glandular t issue). There is a 1 cm oval equal density focal asymmetry in the right breast central to the nipple anterior depth. This is more prominent and increased in size. No other significant masses, calcifications, or other findings are seen in either breast. IMPRESSION: INCOMPLETE: NEEDS ADDITIONAL IMAGING EVALUATION The 1 cm oval equal density focal asymmetry in the right breast resembles a cyst and is indeterminate . Additional views with possible ultrasound are recommended. Based on the Tyrer Cuzick model (a risk assessment model) the patients lifetime risk is 4.6% and her 10 year risk is 2.7%. According to the ACR, ACS, and NCCN guidelines, an annual breast MRI exam peter g with mammogram is recommended if the patients lifetime risk is 20% or greater. This exam was interpreted at Station ID: [id number]. NOTE: For mammograms, a report in lay terms will be sent to the patient. Approximately 15% of breast malignancies will not be visualized mammographically. In the management of a palpable breast mass, a negative mammogram must not discourage biopsy of a clinically suspicious lesion. Electronically Signed By: Darci james/ronna:06/02/2023 07:01:39 ACR BI-RADS Category 0: Incomplete 3340F PARENCHYMAL PATTERN: (A) - The breast(s) demonstrate(s) scattered fibroglandular densities. BI-RADS CATEGORY: (0) - 0 Mammo and [place] [id number] Immediate follow-up LATERALITY: (R)
== END 2023-06-01 10:44 | disposition home or self-care (01) ==
LOC: DI 10:43
PROVIDERS: ATTEND Registered Nurse
DX: Z12.31 Encounter for screening mammogram for malignant neoplasm of breast (principal); R92.8 Other abnormal and inconclusive findings on diagnostic imaging of breast

== ENCOUNTER 2023-06-09 06:24 | Day surgery (SDC) | payer MEDICARE ==
[2023-06-09] MEDS ORDERED: CELECOXIB 100 MG CAPSULE PO ONE (06:37)
[2023-06-09] MEDS ORDERED: ACETAMINOPHEN 500 MG TABLET PO ONE (06:38)
[2023-06-09] MEDS ORDERED: DEXAMETHASONE 10 MG/ML VIAL ONE (06:38)
[2023-06-09] MEDS ORDERED: ceFAZolin 2 GM VIAL ONE (06:38)
[2023-06-09] MEDS ORDERED: LACTATED RINGERS 1,000 ML IV ONE ×2 (06:44→12:33)
[2023-06-09] MEDS ORDERED: dexAMETHasone 4 MG TABLET PO ONE (07:00)
[2023-06-09] MEDS ORDERED: BUPIVACAINE 0.25% PF 30 ML VIAL ONE (07:10)
[2023-06-09] MEDS ORDERED: VANCOMYCIN 1 GM VIAL ONE (07:10)
[2023-06-09] MEDS ORDERED: BUPIVACAINE 0.5% PF 10 ML VIAL ONE (07:48)
[2023-06-09] MEDS ORDERED: fentaNYL 100 MCG/2 ML VIAL ONE ×2 (08:14→11:30)
--- NOTE | 2023-06-09 08:59 | ANESTHESIA ---
Pre-Anesthesia VS, & Labs - Diagnosis b/l osteoarthritis - Procedure L EVARISTO Vital Signs: Temp Pulse Resp BP Pulse Ox O2 Flow Rate 36.1 C L 77 18 136/76 H 96 0 06/09/23 06:45 06/09/23 06:45 06/09/23 06:45 06/09/23 06:45 06/09/23 06:45 06/09/23 06:45 Height: 5 ft 2 in Weight (kg): 74.6 kg Body Mass Index: 30.0 BMI Classification: Obese - NPO >8 hours - Is Patient ?: No - Lab Results Current Lab Results: Laboratory Tests 06/09/23 06:57: POC Whole Bld Glucose 143 H Lab results reviewed: Yes Home Medications and Allergies Estrogen,Con/M-Progest Acet [Premphase 0.625-5 mg Tablet] 1 each PO DAILY 10/26/14 metroNIDAZOLE 0.75% GEL [Flagyl Gel] 1 mg TOP DAILY 12/04/20 Allergies/Adverse Reactions: Allergies Allergy/AdvReac Type Severity Reaction Status Date / Time No Known Drug Allergies Allergy Verified 06/09/23 06:55 Anes History & Medical History - Anesthetic History Anesthesia Complications: reports: No previous complications Family history of Anesthesia Complications: Denies Family history of Malignant Hyperthermia: Denies - Medical History Cardiovascular: reports: High cholesterol, Other Pulmonary: reports: None Gastrointestinal: reports: Colon polyps Urinary: reports: Frequency Neuro: reports: None Musculoskeletal: reports: Osteoarthritis, Other Endocrine/Autoimmune: reports: None Skin: reports: Rosacea Smoking Status: Never smoker - Surgical History General: reports: Appendectomy, Colonoscopy Gynecologic: reports: Hysterectomy, Oophrectomy Exam General: Alert, Oriented x3, Cooperative Dental: WNL Mouth Openin Fingerbreadth Neck Mobility: Normal Mallampati classification: II Thyromental Distance: 4-6 cm Respiratory: Lungs clear Cardiovascular: Regular rate Plan Anesthesia Type: General, Spinal, Fascia Iliaca Block Regional Block: Per Surgeon's request for Post Op pain control Consent for Procedure(s) Verified and Reviewed: Yes Code Status: Attempt Resuscitation ASA classification: 2-Mild systemic disease Is this case an emergency?: No
[2023-06-09] MEDS ORDERED: ONDANSETRON 4 MG/2 ML VIAL IVP PRN ×2 (09:00→11:25)
[2023-06-09] MEDS ORDERED: ATROPINE ABBOJECT 1 MG/10 ML SYRINGE IVP PRN (09:00)
[2023-06-09] MEDS ORDERED: LACTATED RINGERS 1,000 ML IV SCH (09:00)
[2023-06-09] MEDS ORDERED: ePHEDrine 50 MG/ML VIAL IVP PRN (09:00)
[2023-06-09] MEDS ORDERED: NALOXONE 0.4 MG/ML VIAL IVP PRN (09:00)
[2023-06-09] MEDS ORDERED: HYDROmorphone 1 MG/ML CARPUJECT ONE ×2 (09:02→11:42)
[2023-06-09] MEDS ORDERED: VANCOMYCIN 1 GM VIAL MC ONE (09:20)
[2023-06-09] MEDS ORDERED: BUPIVACAINE 0.25% PF 30 ML VIAL SUBQ ONE ×2 (09:20→11:03)
[2023-06-09] MEDS ORDERED: TRANEXAMIC ACID 1,000 MG/10 ML VIAL ONE (10:40)
[2023-06-09] MEDS ORDERED: ePHEDrine 50 MG/ML VIAL IVP ONE (10:40)
[2023-06-09] MEDS ORDERED: GLYCOPYRROLATE 1 MG/5 ML VIAL ONE (10:40)
[2023-06-09] MEDS ORDERED: PHENYLEPHRINE 10 MG/ML VIAL ONE (10:40)
[2023-06-09] MEDS ORDERED: ONDANSETRON 4 MG/2 ML VIAL ONE (10:40)
[2023-06-09] MEDS ORDERED: PROPOFOL 500 MG/50 ML 500 MG/50 ML VIAL ONE (10:40)
[2023-06-09] MEDS ORDERED: ROCURONIUM 50 MG/5 ML VIAL ONE (10:40)
[2023-06-09] MEDS ORDERED: SUGAMMADEX 200 MG/2 ML VIAL IVP ONE (10:44)
--- NOTE | 2023-06-09 10:49 | OPERATIVE REPORT ---
Operative Report - General Procedure Date: 06/09/23 Planned Procedure: Left total hip arthroplasty Pre-Op Diagnosis: Osteoarthritis left hip Procedure Performed: Left total hip arthroplasty utilizing Núñez & Nephew total hip system: #6 clara daniel noncemented femoral component, 48 mm R3 acetabular press-fit cup, 20 mm acetabular screw, 32 mm +0 Oxinium femoral head, 1.7 mm cerclage cable proximal femur Post Op Diagnosis: Same as preoperative diagnosis - Procedure Note Primary Surgeon: Kobi Neville MD Secondary Surgeon: Ambar Sheehan PAC Anesthesia Provider: Garth Hernandez CRNA Anesthesia Technique: General ET tube Estimated Blood Loss (mL): 200 Indications: This is a 68-year-old woman with osteoarthritis of the left hip that become quite symptomatic. She has a history of osteoarthritis of other joints including her shoulder, previous left total shoulder arthroplasty. She has tried nonoperative treatment with failure, symptomatic with activities of daily living and cannot do activities that she enjoys doing such as walking her dog. Her exam shows painful limited motion left hip with positive FADIR and Stinchfield test. Her x-rays showed marked narrowing of the weightbearing dome of the left hip joint with some chondral cysts and sclerosis consistent with osteoarthritis left hip. An informed consent for left total hip arthroplasty was obtained from the patient prior to surgery in our office. She has attended joint camp. She has been seen by her primary care provider as well Findings: I was complete loss of cartilage to femoral head and much of the acetabulum had diminished acetabular cartilage as well. There was benign-appearing synovial fluid within the joint, approximately 5 to 10 cc Complications: Medial calcar fracture left femur - Other Other Information/Narrative: After satisfactory General endotracheal anesthesia had been achieved, the patient was placed in a lateral decubitus position with the left hip facing superiorly. An attempted spinal had been performed but was unsuccessful . The patient was secured in the lateral decubitus position using a pegboard with 2 post securing the torso and 2 posts securing the pelvis. The left hip and left lower extremity were prepped and draped in a sterile manner in the usual fashion. A timeout procedure was performed by the entire operating room team and all were in agreement. A longitudinal incision was made about the lateral left hip beginning at the vastus lateralis ridge of the proximal femur and extending it proximally approximately 3 fingerbreadths above the trochanter. The subcutaneous tissue and fascia shanna were split in line with the incision. The anterior one third of the gluteus medius was incised at the myotendinous junction. The gluteus medius was retracted medially. The hip capsule was exposed and was split in a T-shaped fashion. Part of the anterior hip capsule was excised. The femoral head was dislocated with flexion, adduction and external rotation. An osteotomy was done to the femoral neck using a osteotomy guide. Retractors were placed behind the femoral neck to protect the soft tissues from the oscillating saw. The proximal femur was retracted. 2 acetabular retractors were placed one anteriorly directly against bone to reduce any soft tissue impingement to femoral nerve. The second retractor was placed more posteriorly directly against bone and preventing any impingement against sciatic nerve. The acetabulum was prepared with a large curette. Medialization of the acetabulum was performed with a small acetabular reamer and then widening was done up to a 47 mm reamer the final reamers were placed in approximately 20 degrees anteversion and 40 degrees of abduction. A trial acetabular component was inserted, 48 mm fit well. A permanent 48 mm R3 acetabular 3-hole component was then impacted in 40 degrees of abduction and approximately 20 degrees of anteversion. This had good fixation to push pull and rotation. A single 20 mm superior acetabular screw was inserted. The stability of the acetabular cup was very good. A permanent neutral acetabular liner was inserted into the cup. The femoral canal was opened with a box osteotome, starting reamer and then a short broach. Broaching was carried out to a #6. Calcar reaming was performed. Good fit and stability to the #6 stem was achieved. Trial reduction was performed. Hip motion was very good and the hip was stable to dislocation maneuvers. The trial components were removed. The #6 Anthology femoral stem was impacted and fully seated. The femoral head was impacted on the femoral trunnion. There was good stability to push pull and rotation. A medial calcar fracture was noted with final seating of the #6 femoral stem. The femoral stem was stable. The fracture was treated with a Synthes 1.7 mm stainless steel cerclage cable using a passer, retirement administrator and crimper. The cable was cut flush to the fastener over bone The cable was tightened to 50 kg and seem to provide satisfactory stability. There is no motion at the fracture site which measures about 2 cm. A 32 mm plus 0 oxinium femoral head was impacted onto the trunnion. The hip was reduced, had good leg length tension and good stability with dislocation maneuvers. 3-minute lavage with dilute Betadine was performed. . 2 g of vancomycin powder were inserted after the saline lavage The hip abductors were repaired at the myotendinous junction with #1 stratofix. The fascia shanna was closed with #1 stratofix. The subcutaneous tissue was closed with 2-0 stratofix . The skin was closed with a 3-0 Monocryl subcuticular closure and Dermabond. The patient tolerated the procedure well. A physician customer service assistant was utilized during the procedure to provide retraction and protection of neurovascular structures as well as to facilitate dislocation and reduction of the hip joint.
[2023-06-09] MEDS ORDERED: fentaNYL 250 MCG/5 ML VIAL IVP PRN (11:25)
[2023-06-09] MEDS ORDERED: DOCUSATE SODIUM 100 MG CAPSULE PO PRN (11:25)
[2023-06-09] MEDS ORDERED: SODIUM CHLORIDE FLUSH 0.9% 10 ML SYRINGE IVP PRN (11:25)
[2023-06-09] MEDS: fentaNYL 100 MCG/2 ML VIAL IVP PRN ×2 (11:26→11:34)
[2023-06-09] MEDS: HYDROmorphone 0.5 MG/0.5 ML SYRINGE IVP PRN ×3 (11:52→12:17)
[2023-06-09 13:22] LABS: BASOPHILS % (AUTO) 0.2 %; HGB - HEMOGLOBIN 12.1 g/dL (12.0-16.0); LYMPHOCYTES # (AUTO) 0.9 10^3/uL (1.5-3.5); LYMPHOCYTES % (AUTO) 6.5 %; MEAN CORPUSCULAR HEMOGLOBIN 31.3 pg (27.0-31.0); MEAN CORPUSCULAR HGB CONC 32.7 g/dL (32.0-36.0); MEAN CORPUSCULAR VOLUME 95.6 fL (81.0-99.0); MEAN PLATELET VOLUME 9.9 fL (7.9-10.8); MONOCYTES # (AUTO) 0.3 10^3/uL (0.0-1.0); MONOCYTES % (AUTO) 2.4 %; NEUTROPHILS # (AUTO) 12.8 10^3/uL (1.5-6.6); NEUTROPHILS % (AUTO) 90.3 %; PLT - PLATELET COUNT 256 10^3/uL (130-450); RED BLOOD COUNT 3.87 10^6/uL (4.20-5.40); RED CELL DISTRIBUTION WIDTH 13.2 % (12.0-15.0); WHITE BLOOD COUNT 14.2 x10^3/uL (4.8-10.8)
[2023-06-09] MEDS: ACETAMINOPHEN 500 MG TABLET PO SCH ×3 (14:22→23:55)
[2023-06-09] MEDS: traMADol 50 MG TABLET PO SCH ×3 (14:23→23:55)
[2023-06-09] MEDS: NS W/20 MEQ KCL 1,000 ML IV SCH ×2 (15:09→21:23)
[2023-06-09] MEDS: SODIUM CHLORIDE FLUSH 0.9% 10 ML SYRINGE IVP SCH (16:21)
[2023-06-09] MEDS: ceFAZolin (2G) 2 GM in SODIUM CHLORIDE 0.9% MINIBAG 100 ML IV SCH ×2 (16:21→23:55)
--- NOTE | 2023-06-09 18:06 | ANESTHESIA POST OP EVALUATION ---
Anesthesia Post Eval - Post Anesthesia Eval Vitals: Last Vital Signs Temp 36.2 C L 06/09/23 17:41 Pulse 71 06/09/23 17:41 Resp 20 06/09/23 17:41 BP 129/66 06/09/23 17:41 Pulse Ox 97 06/09/23 17:41 O2 Flow Rate 3 06/09/23 12:55 CV Function Including HR & BP: Stable Pain Control: Satisfactory Nausea & Vomiting: Negative Mental Status: Baseline Respiratory Status: Airway Patent Hydration Status: Satisfactory Anesthesia Complications: None
[2023-06-09] MEDS: oxyCODONE 5 MG TABLET PO PRN (20:01)
[2023-06-09] MEDS: CELECOXIB 100 MG CAPSULE PO SCH (20:59)
[2023-06-09] MEDS: ASPIRIN EC 81 MG TABLET PO SCH (20:59)
[2023-06-09] MEDS: ethyl alcohoL 62% SWAB AMPULE NAS SCH (21:02)
[2023-06-10] MEDS: SODIUM CHLORIDE FLUSH 0.9% 10 ML SYRINGE IVP SCH ×2 (00:02→09:26)
[2023-06-10] MEDS: traMADol 50 MG TABLET PO SCH ×2 (05:52→13:00)
[2023-06-10] MEDS: ACETAMINOPHEN 500 MG TABLET PO SCH ×2 (05:52→13:00)
--- NOTE | 2023-06-10 09:08 | XRAY Report ---
PROCEDURE: Pelvis 1 View INDICATIONS: post operative imaging TECHNIQUE: 1 view(s) of the pelvis acquired. COMPARISON: X-ray pelvis and left hip, 04/14/2023. FINDINGS: Bones: Left hip total arthroplasty with prosthesis in anatomic alignment. No fractures or dislocatio ns. No suspicious bony lesions. Soft tissues: Visualized bowel gas pattern is normal. No suspicious soft tissue calcifications. IMPRESSION: Expected postsurgical changes related to left hip arthroplasty. Reviewed by: Milady Mcintyre MD on 06/10/2023 9:07 AM PDT Approved by: Milady Mcintyre MD on 06/10/2023 9:07 AM PDT Station ID: [id number]
[2023-06-10] MEDS: CELECOXIB 100 MG CAPSULE PO SCH (09:25)
[2023-06-10] MEDS: ASPIRIN EC 81 MG TABLET PO SCH (09:25)
[2023-06-10] MEDS: ethyl alcohoL 62% SWAB AMPULE NAS SCH (09:25)
[2023-06-10] MEDS: NS W/20 MEQ KCL 1,000 ML IV SCH (09:30)
--- NOTE | 2023-06-10 09:42 | PROVIDER PROGRESS NOTE ---
Subjective - General Procedure Date: 06/09/23 Post Op Days: 1 Procedure Performed: Left total hip arthroplasty - Other Other Information/Narrative: Awake and alert, laying semi recumbent in bed Denies chest pain, dyspnea, fever, chills, nausea and emesis Reportedly up to bathroom and chair with front wheeled walker with physical therapy Pain is well controlled Tolerating oral intake with limited appetite Objective - Patient Data Reviewed Vital Signs: Yes Vital Signs: Vital Signs x48h Temp Pulse Resp BP Pulse Ox 06/10/23 06:00 36.5 C 65 16 128/53 L 99 Weight: Weight 06/08/23 06/09/23 06/10/23 23:59 23:59 23:59 Weight (kg) 74.6 kg Intake & Output: Intake and Output Totals x24h 06/08/23 06/09/23 06/10/23 23:59 23:59 23:59 Intake Total 1050 400 Output Total 200 Balance 850 400 - Lab Results Lab Results: 06/09/23 13:17 Other Lab Results: Lab Results x24hrs 06/09/23 Range/Units 13:17 WBC 14.2 H (4.8-10.8) x10^3/uL RBC 3.87 L (4.20-5.40) 10^6/uL Hgb 12.1 (12.0-16.0) g/dL Hct 37.0 (37.0-47.0) % MCV 95.6 (81.0-99.0) fL MCH 31.3 H (27.0-31.0) pg MCHC 32.7 (32.0-36.0) g/dL RDW 13.2 (12.0-15.0) % Plt Count 256 (130-450) 10^3/uL MPV 9.9 (7.9-10.8) fL Neut # (Auto) 12.8 H (1.5-6.6) 10^3/uL Lymph # (Auto) 0.9 L (1.5-3.5) 10^3/uL Peach # (Auto) 0.3 (0.0-1.0) 10^3/uL Eos # (Auto) 0.0 (0.0-0.7) 10^3/uL Baso # (Auto) 0.0 (0.0-0.1) 10^3/uL Absolute Nucleated RBC 0.00 x10^3/uL Nucleated RBC % 0.0 /100WBC - Imaging Results Radiology Imaging: positive: Final report received - Current Medications Current Medications: Current Medications Generic Name Dose Route Start Last Admin Trade Name Shanq PRN Reason Stop Dose Admin Acetaminophen 1,000 mg 06/09/23 12:00 06/10/23 05:52 Acetaminophen 500 Mg Tablet PO 1,000 mg Q6H JASON Administration Alcohol 1 amp 06/09/23 21:00 06/10/23 09:25 Ethyl Alcohol 62% Swab Ampule LEONARDO 1 amp BID JASON Administration Aspirin 81 mg 06/09/23 21:00 06/10/23 09:25 Aspirin Ec 81 Mg Tablet PO 81 mg BID JASON Administration Celecoxib 200 mg 06/09/23 21:00 06/10/23 09:25 Celecoxib 100 Mg Capsule PO 200 mg BID JASON Administration Potassium Chloride/Sodium Chloride 1,000 mls @ 100 mls/hr 06/09/23 12:00 06/10/23 09:30 Normal Saline 0.9% W/20 Meq Kcl IV Not Given .Q10H JASON Oxycodone HCl 5 mg 06/09/23 11:25 06/09/23 20:01 Oxycodone 5 Mg Tablet PO 5 mg Q6HR PRN Administration Severe Breakthrough pain(8-10) Sodium Chloride 10 ml 06/09/23 17:00 06/10/23 09:26 Sodium Chloride Flush 0.9% 10 Ml Syringe IVP 10 ml 0100,0900,1700 JASON Administration Tramadol HCl 50 mg 06/09/23 12:00 06/10/23 05:52 Tramadol 50 Mg Tablet PO 50 mg Q6HR JASON Administration - Physical Exam Comments/Other: well-developed well-nourished, 68-year-old female, no acute distress Dressing is dry and intact without drainage. No evidence of hematoma. Neurovascular intact to left lower extremity including femoral and sciatic nerve distribution. Palpable pedal pulse ABX Reporting Has patient been on IV antibiotics over the past 48 hours?: Yes Impression/Plan - Problem List Problem List: 68-year-old female is postoperative day 1 from a left total hip arthroplasty with Dr. Neville at [facility] on 06/09/2023. She is recovering well with adequate pain control and tolerating oral diet. She has been evaluated by physical therapy who recommends discharge to home with outpatient physical therapy follow-up. Plan: - Weightbearing as tolerated with front wheeled walker at all times - anterior hip precautions - pain control with Tylenol, Celebrex and tramadol. Oxycodone and IV fentanyl as needed for pain control as breakthrough alternatives - continue use of ice - follow-up with orthopedics within 5 days of surgery - dressing to remain in place until orthopedic follow-up. No sutures to be removed - okay to shower with dressing in place - please refer to outpatient discharge instructions completed at time of surgery. Narcotic medications prescribed to [facility]. - DVT prophylaxis with 81 mg of aspirin twice daily for 6 weeks following surgery. SCDs while in hospital - PT to continue treamtent while in hospital
[2023-06-10 09:57] VITALS: BP 119/52; O2SAT 96
[2023-06-10] MEDS: oxyCODONE 5 MG TABLET PO PRN (11:08)
== END 2023-06-10 13:45 | disposition home or self-care (01) ==
LOC: SDS 06:24 → MS2 11:08 → SDS 06-10 13:45
PROVIDERS: ATTEND Orthopaedic Surgery
DX: M16.0 Bilateral primary osteoarthritis of hip (principal); E66.9 Obesity, unspecified; Z68.30 Body mass index [BMI] 30.0-30.9, adult
CPT/HCPCS: 27130; 36415; 72170; 85025; 97161; 97530; A9270; J1170; J3370; J7120

== ENCOUNTER 2023-07-20 08:00 | Outpatient (CLI) | payer MEDICARE ==
--- NOTE | 2023-07-20 19:58 | XRAY Report ---
PROCEDURE: Hip 2 View LT INDICATIONS: LEFT TOTAL HIP TECHNIQUE: 2 view(s) of the hip were acquired. COMPARISON: None FINDINGS: Bones: No fractures or dislocations. No suspicious bony lesions. The visualized pelvic ring appear s intact. Left total hip arthroplasty in good position. No evidence of hardware failure or loosening . Moderate right hip joint space narrowing. Soft tissues: No suspicious soft tissue calcifications or masses. IMPRESSION: Total left hip arthroplasty in good position. No evidence of complication. Reviewed by: Robreth Hope MD on 07/20/2023 6:57 PM AKDT Approved by: Roberth Hope MD on 07/20/2023 6:57 PM AKDT Station ID: [id number]
== END 2023-07-20 23:59 | disposition home or self-care (01) ==
LOC: DI.WOS 08:00
PROVIDERS: ATTEND Orthopaedic Surgery
DX: Z47.1 Aftercare following joint replacement surgery (principal); Z96.642 Presence of left artificial hip joint

== ENCOUNTER 2023-08-03 08:00 | Outpatient (CLI) | payer MEDICARE ==
--- NOTE | 2023-08-03 16:27 | XRAY Report ---
PROCEDURE: Hip 1 View RT INDICATIONS: RIGHT HIP PAIN TECHNIQUE: One views of the hip were acquired. COMPARISON: None. FINDINGS: Bones: No fractures or dislocations. No suspicious bony lesions. Soft tissues: No suspicious soft tissue calcifications or masses. IMPRESSION: No acute bony abnormality. Reviewed by: Mynor Campbell on 08/03/2023 4:26 PM PDT Approved by: Mynor Campbell on 08/03/2023 4:26 PM PDT Station ID: [id number]
== END 2023-08-03 23:59 | disposition home or self-care (01) ==
LOC: DI.WOS 08:00
PROVIDERS: ATTEND Orthopaedic Surgery
DX: M25.551 Pain in right hip (principal)

== ENCOUNTER 2023-09-28 11:21 | Outpatient (CLI) | payer MEDICARE ==
--- NOTE | 2023-09-28 12:15 | XRAY Report ---
PROCEDURE: Knee 4+V LT INDICATIONS: KNEE PAIN,LEFT TECHNIQUE: 5 views of the knee(s) were acquired. COMPARISON: None. FINDINGS: Bones: No fractures or dislocations. Mild degenerative changes of the knee with spurring and mild me dial joint space narrowing. No suspicious bony lesions. Soft tissues: No knee joint effusion. No suspicious soft tissue calcifications or masses. IMPRESSION: 1.No acute bony abnormality. 2.Mild degenerative changes of the knee. Reviewed by: Wilfrido Maloney MD on 09/28/2023 12:14 PM PST Approved by: Wilfrido Maloney MD on 09/28/2023 12:14 PM PST Station ID: [id number]
== END 2023-09-28 11:22 | disposition home or self-care (01) ==
LOC: DI.S 11:21
PROVIDERS: ATTEND Physician Assistant Medical
DX: M17.12 Unilateral primary osteoarthritis, left knee (principal)

== ENCOUNTER 2023-10-13 06:13 | Day surgery (SDC) | payer MEDICARE ==
[~2023-10-13 06:13] MED LIST changes: -CEFAZOLIN SODIUM IN 0.9 % NACL 2 GM/100 ML BAG IV ONE; -THROMBIN (BOVINE) 5,000 UNIT VIAL TOP ONE; -VANCOMYCIN 1 GM VIAL ONE; +ceFAZolin 2 GM VIAL ONE
[2023-10-13] MEDS ORDERED: LACTATED RINGERS 1,000 ML IV ONE ×3 (06:38→11:14)
[2023-10-13] MEDS ORDERED: BUPIVACAINE 0.25% PF 30 ML VIAL ONE (07:00)
[2023-10-13] MEDS ORDERED: dexAMETHasone 4 MG TABLET PO ONE (07:00)
[2023-10-13] MEDS ORDERED: VANCOMYCIN 1 GM VIAL ONE (07:00)
--- NOTE | 2023-10-13 07:06 | ANESTHESIA ---
Pre-Anesthesia VS, & Labs - Diagnosis hip arthritis - Procedure total hip arthroplasty Vital Signs: Temp Pulse Resp BP Pulse Ox O2 Flow Rate 36.5 C 81 18 121/55 L 96 10/13/23 06:41 10/13/23 06:41 10/13/23 06:41 10/13/23 06:41 10/13/23 06:41 Height: 5 ft 2 in Weight (kg): 76.4 kg Body Mass Index: 30.8 BMI Classification: Obese - NPO >8 hours - Is Patient ?: No Home Medications and Allergies Home Medications: Ambulatory Orders Estradiol Compound Cream 1 applic VG DAILY 10/08/23 Estradiol Compound Cream 1 applic VG DAILY 10/08/23 Allergies/Adverse Reactions: Allergies Allergy/AdvReac Type Severity Reaction Status Date / Time No Known Drug Allergies Allergy Verified 10/13/23 06:56 Anes History & Medical History - Anesthetic History Anesthesia Complications: reports: No previous complications - Medical History Cardiovascular: reports: High cholesterol, Other Pulmonary: reports: None Gastrointestinal: reports: Colon polyps Urinary: reports: Frequency Neuro: reports: None Musculoskeletal: reports: Osteoarthritis, Other Endocrine/Autoimmune: reports: None Skin: reports: Rosacea Smoking Status: Never smoker History of Cancer?: No - Surgical History General: reports: Appendectomy, Colonoscopy Gynecologic: reports: Hysterectomy, Oophrectomy Orthopedic: reports: Hip replacement, Shoulder arthroplasty Exam General: Alert, Oriented x3 Dental: WNL Mouth Opening: Greater than 4 Fingerbreadths Neck Mobility: Limited Mallampati classification: III Thyromental Distance: greater than 6 cm Respiratory: Lungs clear Cardiovascular: Regular rate, Normal S1, Normal S2 Plan Anesthesia Type: General Consent for Procedure(s) Verified and Reviewed: Yes Code Status: Attempt Resuscitation ASA classification: 2-Mild systemic disease Is this case an emergency?: No
[2023-10-13] MEDS ORDERED: ATROPINE ABBOJECT 1 MG/10 ML SYRINGE IVP PRN (07:09)
[2023-10-13] MEDS ORDERED: HYDROmorphone 0.5 MG/0.5 ML SYRINGE IVP PRN (07:09)
[2023-10-13] MEDS ORDERED: MORPHINE 2 MG/ML CARPUJECT IVP PRN (07:09)
[2023-10-13] MEDS ORDERED: ePHEDrine 50 MG/ML VIAL IVP PRN (07:09)
[2023-10-13] MEDS ORDERED: METOCLOPRAMIDE 10 MG/2 ML VIAL IVP PRN (07:09)
[2023-10-13] MEDS ORDERED: ONDANSETRON 4 MG/2 ML VIAL IVP PRN ×2 (07:09→11:09)
[2023-10-13] MEDS ORDERED: NALOXONE 0.4 MG/ML VIAL IVP PRN (07:09)
[2023-10-13] MEDS ORDERED: fentaNYL 100 MCG/2 ML VIAL ONE ×3 (07:16→11:24)
[2023-10-13] MEDS ORDERED: MIDAZOLAM 2 MG/2 ML VIAL ONE (07:16)
[2023-10-13] MEDS ORDERED: PROPOFOL 200 MG/20 ML VIAL IVP ONE (07:19)
[2023-10-13] MEDS ORDERED: LACTATED RINGERS 1,000 ML IV SCH (08:00)
[2023-10-13] MEDS ORDERED: DEXAMETHASONE 4 MG/ML VIAL ONE (08:23)
[2023-10-13] MEDS ORDERED: TRANEXAMIC ACID 1,000 MG/10 ML VIAL ONE ×2 (08:23→10:14)
[2023-10-13] MEDS ORDERED: ONDANSETRON 4 MG/2 ML VIAL ONE (08:23)
[2023-10-13] MEDS ORDERED: ROCURONIUM 50 MG/5 ML VIAL ONE ×2 (08:23)
[2023-10-13] MEDS ORDERED: SEVOFLURANE 250 ML LIQUID INH ONE (09:01)
[2023-10-13] MEDS ORDERED: VANCOMYCIN 1 GM VIAL MC ONE ×2 (09:32→10:10)
[2023-10-13] MEDS ORDERED: BUPIVACAINE 0.25% PF 30 ML VIAL SUBQ ONE (09:39)
[2023-10-13] MEDS ORDERED: LIDOCAINE-PF 2% 10 ML AMP SUBQ ONE (10:16)
[2023-10-13] MEDS ORDERED: ROPIVACAINE 0.5% PF 20 ML VIAL ONE (10:16)
--- NOTE | 2023-10-13 10:50 | OPERATIVE REPORT ---
Operative Report - General Procedure Date: 10/13/23 Planned Procedure: Right total hip replacement Pre-Op Diagnosis: Osteoarthritis right hip Procedure Performed: Right total hip replacement: Núñez & Nephew #5 Accolade femoral component with hydroxyapatite, standard offset, 32 mm +4 Oxinium femoral head, 48 mm R3 acetabular cup, neutral polyethylene liner, three Synthes 1.7mm cerclage wires proximal femur Post Op Diagnosis: Same as preoperative diagnosis - Procedure Note Primary Surgeon: Kobi Neville MD Secondary Surgeon: Ambar TAYLOR Anesthesia Provider: Raiza Mckenzie CRNA Anesthesia Technique: General mask Estimated Blood Loss (mL): 200 Indications: This is a 68-year-old woman with a history of bilateral hip osteoarthritis. She has had a favorable outcome from a left total hip arthroplasty performed last year. She has had progressive pain to the right hip and this is what is limiting her ability to walk and do activities of daily living. Her right hip shows decreased motion, painful motion, positive Stinchfield and FADIR test. Her routine radiographs of the right hip show marked narrowing of the hip joint, osteophytes, sclerosis consistent with osteoarthritis of the right hip her general health has been stable. She has been evaluated previously by primary care and has attended joint camp previously. An informed consent was obtained for the procedure right total hip replacement Findings: There was multiple 4 to 5 mm loose bodies within the hip joint. There is marked loss of articular cartilage to the acetabulum and most of the cartilage was gone to the femoral head with exposed bone Complications: Intraoperative medial calcar fracture treated with three 1.7 mm cerclage Synthes . Fracture was stable, nondisplaced, occurred with final impaction and seeding of the #5 femoral componentcablesThe same complication occurred on her other hip. On the right side and #5 component was used which was smaller than on the other side which was a #6 femoral component. Great care was taken to prevent this intraoperative complication but nevertheless this still occurred. She does have a relatively narrow femoral canal or isthmus - Other Other Information/Narrative: The patient was brought to the operating room. A spinal anesthetic was attempted but could not be completed. Therefore, the patient was positioned on the operating table in a supine position. A general endotracheal anesthetic was administered. The patient was turned to the lateral decubitus position on a pegboard and held with 3 pegs. 2 were placed around the pelvic region and 1 additional 1 below the chest level. The right lower extremity was prepped and draped in a sterile manner in the usual fashion. A timeout procedure was performed by the entire operating room team and all were in agreement. A longitudinal incision was made just distal to the vastus lateralis ridge and extended proximally approximately 3 finger breaths above the greater trochanter. The subcutaneous tissue and fascia shanna was split in line with the incision. An initial self-retaining retractor was inserted. The anterior third of the myotendinous junction of the gluteus medius was released to expose the anterior capsule of the hip joint. A Cobra retractor was placed in the hip joint. The anterior capsule was incised longitudinally. Part of the capsule was excised exposing the femoral head and edge of acetabulum. The hip was dislocated anteriorly. the femoral neck osteotomy was performed with the cutting guide an oscillating saw.; Cobra retractors were placed posterior to the neck while using the oscillating saw. The femoral head was removed. The acetabulum was exposed. A Cobra retractor was placed inferiorly, anterior and posterior acet abular retractors were inserted and placed directly against bone to avoid adjacent neurologic and vascular structures. Acetabular reaming was performed with a 43 mm. This was progressed to a 47 mm a cetabular reamer reamer. A 46 mm trial seem to have a good fit. A 47 mm R3 acetabular noncemented cup was impacted and placed in approximately 40 degrees of abduction and 20 degrees of anteversion. This had good stability and a screw was not felt to be necessary. Next the femoral canal was approached by placing the leg in an anterior hip pocket. The box osteotome was utilized to open the femoral canal. A canal opening reamer was inserted. The short broach and lateralizing reamer was also utilized. Broaching was carried out to a #5 broach. The #5 broach had good fit and good stability. A trial reduction was performed. The hip was found to be stable with the trial components.A permanent #5 femoral component was inserted and was very close to the calcar on the last mallet tap created a intraoperative medial calcar fracture that was not present what the trial #5 femoral component. This fracture was nondisplaced. The component was removed. Synthes cerclage cables were utilized. A total of 3 were utilized using the passer, 1.7 mm cables, tensioner to tension of 50 kg and the final instrument was cutting of the excess cable. These 3 cables provide excellent stability. An #5 prosthesis was then reinserted, standard offset, hydroxyapatite coated femoral component. A +4,32 mm Oxinium femoral head was impacted. The hip was reduced. The hip was found to be stable to range of motion. There was no instability to the femoral component or the medial calcar fracture line which was well opposed by cables. The wound was irrigated with dilute Betadine, then hydroperoxide. Vancomycin 2 g powder was inserted prior to the deep closure. The gluteus medius and hip capsule was closed with #1 strata fix, fascia shanna closed with strata fix, double layer subcutaneous tissue closure with 2 0 strata fix suture the skin was closed with 3-0 Monocryl subcuticular suture, Dermabond and a Mepilex dressing. The patient received 2 g of Ancef intravenously and a gram of tranxemic acid. A physician assistant professor of german was felt to be medically necessary to provide exposure and protection of vital structures during the exposure of the procedure, assist with dislocation and reduction of hip, wound closure and dressing
[2023-10-13] MEDS ORDERED: oxyCODONE 5 MG TABLET PO PRN (11:09)
[2023-10-13] MEDS ORDERED: fentaNYL 250 MCG/5 ML VIAL IVP PRN (11:09)
[2023-10-13] MEDS ORDERED: DOCUSATE SODIUM 100 MG CAPSULE PO PRN (11:09)
[2023-10-13] MEDS ORDERED: SODIUM CHLORIDE FLUSH 0.9% 10 ML SYRINGE IVP PRN (11:09)
[2023-10-13] MEDS: fentaNYL 100 MCG/2 ML VIAL IVP PRN ×2 (11:28→11:33)
[2023-10-13] MEDS ORDERED: HYDROmorphone 0.5 MG/0.5 ML SYRINGE ONE (11:38)
--- NOTE | 2023-10-13 11:53 | XRAY Report ---
PROCEDURE: Pelvis 1-2V INDICATIONS: post operative imaging TECHNIQUE: 2 view(s) of the pelvis acquired. COMPARISON: 2 views of the hip dated 07/20/2023. FINDINGS: Bones: Patient is status post right hip arthroplasty. Hardware elements are in expected anatomic ali gnment. Soft tissues: Postoperative changes are present within the overlying soft tissues. IMPRESSION: Expected appearances status post right hip arthroplasty. Reviewed by: Elin Whaley MD on 10/13/2023 11:52 AM PST Approved by: Elin Whaley MD on 10/13/2023 11:52 AM PST Station ID: [id number]
[2023-10-13] MEDS: traMADol 50 MG TABLET PO SCH ×3 (12:56→23:59)
[2023-10-13] MEDS: ACETAMINOPHEN 500 MG TABLET PO SCH ×3 (13:10→23:58)
[2023-10-13] MEDS: ceFAZolin (2G) 2 GM in SODIUM CHLORIDE 0.9% MINIBAG 100 ML IV SCH ×2 (13:12→20:30)
[2023-10-13] MEDS: NS W/20 MEQ KCL 1,000 ML IV SCH (13:15)
--- NOTE | 2023-10-13 13:22 | ANESTHESIA POST OP EVALUATION ---
Anesthesia Post Eval - Post Anesthesia Eval Vitals: Last Vital Signs Temp 36.5 C 10/13/23 12:27 Pulse 70 10/13/23 12:27 Resp 17 10/13/23 12:27 BP 137/80 H 10/13/23 12:27 Pulse Ox 75 L 10/13/23 12:27 O2 Flow Rate 2 10/13/23 12:27 CV Function Including HR & BP: Stable Pain Control: Satisfactory Nausea & Vomiting: Negative Mental Status: Baseline Respiratory Status: Airway Patent Hydration Status: Satisfactory Anesthesia Complications: None
[2023-10-13] MEDS: SODIUM CHLORIDE FLUSH 0.9% 10 ML SYRINGE IVP SCH (17:20)
[2023-10-13] MEDS: CELECOXIB 100 MG CAPSULE PO SCH (20:14)
[2023-10-13] MEDS: ethyl alcohoL 62% SWAB AMPULE NAS SCH (20:14)
[2023-10-14] MEDS: SODIUM CHLORIDE FLUSH 0.9% 10 ML SYRINGE IVP SCH ×2 (00:11→09:10)
[2023-10-14] MEDS: traMADol 50 MG TABLET PO SCH (06:04)
[2023-10-14] MEDS: ACETAMINOPHEN 500 MG TABLET PO SCH (07:15)
[2023-10-14] MEDS: NS W/20 MEQ KCL 1,000 ML IV SCH (07:50)
--- NOTE | 2023-10-14 07:57 | PROVIDER PROGRESS NOTE ---
Subjective - General Procedure Date: 10/13/23 Post Op Days: 1 Procedure Performed: Right total hip arthroplasty - Other Other Information/Narrative: Alert, awake sitting semirecumbent in bed She denies chest pain, dyspnea, nausea and emesis. Tolerating oral diet well with dinner She has a pure wick catheter in place which she hopes will be removed today Pain is well-controlled and rated as a 1 out of 10 on a pain scale She was evaluated by physical therapy yesterday but nerve block was still in effect Objective - Patient Data Reviewed Vital Signs: Yes Vital Signs: Vital Signs x48h Temp Pulse Resp BP Pulse Ox 10/14/23 00:26 37.0 C 78 16 119/69 96 Weight: Weight 10/12/23 10/13/23 10/14/23 23:59 23:59 23:59 Weight (kg) 76.4 kg Intake & Output: Intake and Output Totals x24h 10/12/23 10/13/23 10/14/23 23:59 23:59 23:59 Intake Total 1843 500 Output Total 500 1200 Balance 1343 -700 - Imaging Results Radiology Imaging: positive: Final report received - Current Medications Current Medications: Current Medications Generic Name Dose Route Start Last Admin Trade Name Freq PRN Reason Stop Dose Admin Acetaminophen 1,000 mg 10/13/23 12:00 10/14/23 07:15 Acetaminophen 500 Mg Tablet PO 1,000 mg Q6H JASON Administration Alcohol 1 amp 10/13/23 21:00 10/13/23 20:14 Ethyl Alcohol 62% Swab Ampule LEONARDO 1 amp BID JASON Administration Celecoxib 200 mg 10/13/23 21:00 10/13/23 20:14 Celecoxib 100 Mg Capsule PO 200 mg BID JASON Administration Potassium Chloride/Sodium Chloride 1,000 mls @ 75 mls/hr 10/13/23 12:00 10/14/23 07:50 Normal Saline 0.9% W/20 Meq Kcl IV Not Given .[id number] JASON Sodium Chloride 10 ml 10/13/23 17:00 10/14/23 00:11 Sodium Chloride Flush 0.9% 10 Ml Syringe IVP 10 ml 0100,0900,1700 JASON Administration Tramadol HCl 50 mg 10/13/23 12:00 10/14/23 06:04 Tramadol 50 Mg Tablet PO 50 mg Q6HR JASON Administration - Physical Exam Comments/Other: well-developed, well-nourished, 68-year-old female, no acute distress, pleasant and awake Dressing is dry and intact without drainage or hematoma formation Femoral and sciatic nerve function intact. Palpable dorsalis pedis pulse ABX Reporting Has patient been on IV antibiotics over the past 48 hours?: Yes Impression/Plan - Problem List Problem List: 68-year-old female with no reported past medical history is postoperative day 1 from a right total hip arthroplasty by Dr. Neville [facility] on 10/13/2023. She is recovering well with excellent pain control. She is awaiting physical therapy evaluation today. Vital signs are stable. The plan is for discharge home today. Plan: - DVT prophylaxis with 81 mg of aspirin twice daily for 6 weeks, SCDs in hospital - Physical and occupational therapy evaluation today and assessment for discharge home - Pain control with scheduled tylenol, celebrex, tramadol and oxycodone as needed - Weight bearing as tolerated with front wheeled walker at all times - Follow up with orthopedic clinic on Wednesday10/19/22 - Mepilex dressing to remain in place until follow up - Refer to OPS discharge instructions and call the orthopedic office with outstanding questions - Bowel regimen if needed - Normal diet, IV fluids to be discontinued when tolerating oral diet without nausea and emesis
[2023-10-14] MEDS ORDERED: ASPIRIN EC 81 MG TABLET PO SCH (09:00)
[2023-10-14] MEDS: ethyl alcohoL 62% SWAB AMPULE NAS SCH (09:09)
[2023-10-14] MEDS: CELECOXIB 100 MG CAPSULE PO SCH (09:10)
[2023-10-14 09:14] VITALS: BP 118/69; O2SAT 97
== END 2023-10-14 11:45 | disposition home or self-care (01) ==
LOC: SDS 06:13 → MS3 12:04 → SDS 10-14 11:45
PROVIDERS: ATTEND Orthopaedic Surgery
DX: M16.11 Unilateral primary osteoarthritis, right hip (principal); M96.661 Fracture of femur following insertion of orthopedic implant, joint prosthesis, or bone plate, right leg; R35.0 Frequency of micturition; Z96.642 Presence of left artificial hip joint; E66.9 Obesity, unspecified; Z68.30 Body mass index [BMI] 30.0-30.9, adult
CPT/HCPCS: 27130; 72170; 97116; 97162; 97166; A9270; C1776; J1170; J2795; J3370; J3490; J7120

== ENCOUNTER 2023-10-19 08:00 | Outpatient (CLI) | payer MEDICARE ==
--- NOTE | 2023-10-19 14:03 | XRAY Report ---
PROCEDURE: Hip 2 View RT INDICATIONS: RIGHT TOTAL HIP TECHNIQUE: 2 view(s) of the hip were acquired. COMPARISON: 10/13/2023 FINDINGS: Bones: Bilateral hip arthroplasties, more recently on the right. Appearance is unchanged. Soft tissues: Postsurgical changes. IMPRESSION: Unchanged, expected appearance of the hip arthroplasties. Reviewed by: Geoff Merrill MD on 10/19/2023 2:01 PM PST Approved by: Geoff Merrill MD on 10/19/2023 2:01 PM PST Station ID: [id number]
== END 2023-10-19 23:59 | disposition home or self-care (01) ==
LOC: DI.WOS 08:00
PROVIDERS: ATTEND Orthopaedic Surgery
DX: Z96.641 Presence of right artificial hip joint (principal); Z96.642 Presence of left artificial hip joint

== ENCOUNTER 2023-11-08 08:00 | Outpatient (CLI) | payer MEDICARE ==
--- NOTE | 2023-11-08 15:28 | XRAY Report ---
PROCEDURE: Hip 2 View RT INDICATIONS: RIGHT TOTAL HIP TECHNIQUE: 2 views of the hip were acquired. COMPARISON: Right hip radiographs 10/19/2023 FINDINGS: Bones: Right total hip arthroplasty is again seen in unchanged position. Multiple cerclage wires agai n noted. No new osseous abnormality. Soft tissues: No suspicious soft tissue calcifications. IMPRESSION: Unchanged appearance of the right hip arthroplasty. Reviewed by: Serjio Nicole MD on 11/08/2023 3:27 PM PST Approved by: eSrjio Nicole MD on 11/08/2023 3:27 PM PST Station ID: [id number]
== END 2023-11-08 23:59 | disposition home or self-care (01) ==
LOC: DI.WOS 08:00
PROVIDERS: ATTEND Orthopaedic Surgery
DX: Z96.641 Presence of right artificial hip joint (principal)

== ENCOUNTER 2023-11-30 14:30 | Outpatient (CLI) | payer MEDICARE ==
--- NOTE | 2023-11-30 20:44 | XRAY Report ---
PROCEDURE: Hip 2 View RT INDICATIONS: RIGHT TOTAL HIP WITH FRACTURE WIRE TECHNIQUE: 2 view(s) of the hip were acquired. COMPARISON: 11/08/2023, 10/19/2023 FINDINGS: Bones: Prior right total hip arthroplasty is again seen. A right hip alignment is unchanged from delia or studies. No gross hardware loosening or failure. No acute fractures or dislocations. No suspiciou s bony lesions. The visualized pelvic ring appears intact. Soft tissues: No suspicious soft tissue calcifications or masses. IMPRESSION: Stable and anatomic right hip alignment after right total hip arthroplasty. No evidence of hardware l oosening or failure. No acute fracture or dislocation. Reviewed by: Yannick Marques MD on 11/30/2023 8:43 PM PST Approved by: Yannick Marques MD on 11/30/2023 8:43 PM PST Station ID: [id number]
== END 2023-11-30 23:59 | disposition home or self-care (01) ==
LOC: DI.WOS 14:30
PROVIDERS: ATTEND Orthopaedic Surgery
DX: Z47.1 Aftercare following joint replacement surgery (principal); Z96.641 Presence of right artificial hip joint

== ENCOUNTER 2024-01-18 08:00 | Outpatient (CLI) | payer MEDICARE ==
--- NOTE | 2024-01-18 17:47 | XRAY Report ---
PROCEDURE: Hip BILAT INDICATIONS: RIGHT HIP ARTHROPLASTY TECHNIQUE: An AP view the pelvis and bilateral crosstable lateral view(s) of the hips were acquired. COMPARISON: None. FINDINGS: Bones: No fractures or dislocations. No suspicious bony lesions. The visualized pelvic ring appear s intact. Expected appearance of bilateral total hip arthroplasties. No evidence of hardware failure or loosening. Soft tissues: No suspicious soft tissue calcifications or masses. IMPRESSION: Expected appearance of bilateral total hip arthroplasties. No acute bony abnormality. Reviewed by: Abdifatah Swartz MD on 01/18/2024 5:45 PM PDT Approved by: Abdifatah Swartz MD on 01/18/2024 5:45 PM PDT Station ID: [id number]
== END 2024-01-18 23:59 | disposition home or self-care (01) ==
LOC: DI.WOS 08:00
PROVIDERS: ATTEND Orthopaedic Surgery
DX: Z96.641 Presence of right artificial hip joint (principal); Z96.642 Presence of left artificial hip joint

== ENCOUNTER 2024-06-13 10:12 | Outpatient (CLI) | payer MEDICARE ==
--- NOTE | 2024-06-14 11:27 | Mammography Report ---
BILATERAL DIGITAL SCREENING MAMMOGRAM 3D/2D: 06/13/2024 CLINICAL: Routine screening. Comparison is made to exams dated: 06/28/2023 mammogram, 06/01/2023 mammogram, 11/26/2020 mammogram, mammogram, 03/18/2017 mammogram, and 02/19/2016 mammogram - [facility]. There are scattered areas of fibroglandular density (category b / 25%-50% glandular tissue). There is a developing oval asymmetry in the right breast at 12 o'clock middle depth. This is more pr ominent and increased in size. No other significant masses, calcifications, or other findings are seen in either breast. There has been no significant interval change. IMPRESSION: INCOMPLETE: NEED ADDITIONAL IMAGING EVALUATION The developing oval asymmetry in the right breast is indeterminate. Additional views with possible u ltrasound are recommended. Based on the Tyrer Cuzick model (a risk assessment model) the patient's lifetime risk is 4.4% and her 10 year risk is 2.8%. According to the ACR, ACS, and NCCN guidelines, an annual breast MRI exam peter g with mammogram is recommended if the patient's lifetime risk is 20% or greater. This exam was interpreted at Station ID: [id number]. NOTE: For mammograms, a report in lay terms will be sent to the patient. Approximately 15% of breast malignancies will not be visualized mammographically. In the management of a palpable breast mass, a negative mammogram must not discourage biopsy of a clinically suspicious lesion. Electronically Signed By: Elli hamilton/ronna:06/13/2024 17:08:34 letter sent: No_Letter ACR BI-RADS Category 0: Incomplete: Need Additional Imaging Evaluation [id number] PARENCHYMAL PATTERN: (A) - The breast(s) demonstrate(s) scattered fibroglandular densities. BI-RADS CATEGORY: (0) - 0 Mammo and [place] [id number] Immediate follow-up LATERALITY: (B)
== END 2024-06-13 10:13 | disposition home or self-care (01) ==
LOC: DI 10:12
PROVIDERS: ATTEND Registered Nurse
DX: Z12.31 Encounter for screening mammogram for malignant neoplasm of breast (principal); N64.89 Other specified disorders of breast

== ENCOUNTER 2024-06-30 08:20 | Outpatient (CLI) | payer MEDICARE ==
--- NOTE | 2024-06-30 16:07 | Ultrasound Report ---
LIMITED ULTRASOUND OF RIGHT BREAST: 06/30/2024 CLINICAL: Patient returns today to evaluate a focal asymmetry in the right breast. Comparison is made to exams dated: 06/30/2024 mammogram, 06/13/2024 mammogram, 06/28/2023 ultrasound, mammogram, 06/01/2023 mammogram, and 11/26/2020 mammogram - [facility]. Color flow ultrasound of the right breast 12 o'clock, and retroareolar regions was performed. Aldana s israel images of the real-time examination were reviewed. There is a benign 6 mm x 7 mm x 5 mm oval cyst with a smooth internal wall in the right breast at 12 o'clock anterior depth. This oval cyst is anechoic with posterior acoustic enhancement. This correl ates with mammography findings. Color flow imaging demonstrates that there is no vascularity present . IMPRESSION: BENIGN There is no sonographic evidence of malignancy. The 6 mm x 7 mm x 5 mm oval cyst in the right breast is consistent with a simple cyst and is benign. Return to annual mammogram screening schedule is recommended. This exam was interpreted at Station ID: [id number]. Electronically Signed By: Serjio chirinos/ronna:06/30/2024 15:40:00 letter sent: No_Letter ACR BI-RADS Category 2: Benign BI-RADS CATEGORY: (2) - 2 Mammogram [id number] return to screening LATERALITY: (B)
--- NOTE | 2024-06-30 16:07 | Mammography Report ---
UNILATERAL RIGHT DIGITAL DIAGNOSTIC MAMMOGRAM 3D/2D WITH SPOT COMPRESSION: 06/30/2024 CLINICAL: Patient returns today to evaluate a focal asymmetry in the right breast. Comparison is made to exams dated: 06/13/2024 mammogram, 06/28/2023 mammogram, 06/01/2023 mammogram, mammogram, and 06/28/2023 ultrasound - [facility]. There are scattered areas of fibroglandular density (category b / 25%-50% glandular tissue). There is an oval focal asymmetry with a circumscribed margin in the right breast at 12 o'clock anteri or depth. This is seen in additional views. This is more prominent. No other significant masses or calcifications are seen in the breast. IMPRESSION: INCOMPLETE: NEED ADDITIONAL IMAGING EVALUATION The oval focal asymmetry in the right breast is indeterminate. An ultrasound is recommended. Based on the Tyrer Cuzick model (a risk assessment model) the patient's lifetime risk is 4.4% and her 10 year risk is 2.8%. According to the ACR, ACS, and NCCN guidelines, an annual breast MRI exam peter g with mammogram is recommended if the patient's lifetime risk is 20% or greater. This exam was interpreted at Station ID: [id number]. NOTE: For mammograms, a report in lay terms will be sent to the patient. Approximately 15% of breast malignancies will not be visualized mammographically. In the management of a palpable breast mass, a negative mammogram must not discourage biopsy of a clinically suspicious lesion. Electronically Signed By: Serjio chirinos/ronna:06/30/2024 15:38:41 ACR BI-RADS Category 0: Incomplete: Need Additional Imaging Evaluation PARENCHYMAL PATTERN: (A) - The breast(s) demonstrate(s) scattered fibroglandular densities. BI-RADS CATEGORY: (0) - 0 Ultrasound [id number] Immediate follow-up LATERALITY: (R)
== END 2024-06-30 08:21 | disposition home or self-care (01) ==
LOC: DI 08:20
PROVIDERS: ATTEND Registered Nurse
DX: N60.01 Solitary cyst of right breast (principal)